=== PATIENT | male | born 1935 | race Caucasian/White ===

== ENCOUNTER 2019-10-15 12:48 | Emergency (ER) | payer OTHER ==
[~2019-10-15] VITALS: Ht 177.8 cm; Wt 90.7 kg
--- OUTSIDE RECORDS SUMMARY | 2019-10-15 12:51 | XMS REPORT | Summary of Care ---
Author Author [facility] Address Unknown Phone Unavailable Encounter HQ Bertha_[place](ZOE) [id number] Date(s): 06/04/15 - 06/04/15 [facility] [address] [place] [address]- Discharge Disposition: Home Attending Physician: Annelise Canseco MD Vital Signs No data available for this section Problem List No data available for this section Allergies, Adverse Reactions, Alerts No data available for this section Medications No data available for this section Results No data available for this section Immunizations No data available for this section Procedures No data available for this section Social History No data available for this section Assessment and Plan No data available for this section
--- OUTSIDE RECORDS SUMMARY | 2019-10-15 12:51 | XMS REPORT ---
Author Author Mohsen Tucker Organization [employer] Address Unknown Phone Unavailable Care Team Providers Care Senior Human Resources Representative Name Role Phone Sharonda Tucker CP Unavailable Allergies No Known Allergies Problems Problem Type Condition Code Onset Dates Condition Statu s Problem Hypertensive heart disease without heart failure I11.9 Active Problem Pure hypercholesterolemia E78.0 Ac tive Problem CAD without angina I25.10 Active Problem Bruit R09.89 Active Medications No Known Medications Results No Known Results Summary Purpose [employer] Submission
--- OUTSIDE RECORDS SUMMARY | 2019-10-15 12:51 | XMS REPORT ---
Author Author Mohsen Canseco Organization [employer] Address Unknown Phone Unavailable Care Team Providers Care [employer] Name Role Phone Annelise Canseco CP Unavailable Allergies, Adverse Reactions, Alerts Substance Reaction Event Type N.K.D.A. 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 Problem Mixed hyperlipidemia E78.2 Active Problem Skin lesion L98.9 Active Problem Osteopenia M85.80 Active Assessment Essential hypertension I10 Activ e Assessment 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 Active Problem Onychomycosis B35.1 Active Assessment Chronic kidney disease, stage III (moderate) N18.3 Active Problem Coronary artery disease invo lving [place] coronary artery of [place] heart without angina pectoris I25.10 Active Problem Other specified nutritional anemias D53.8 Active Problem Chronic kidney disease, stage III (moderate) N18.3 Active Problem 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 Act alejandra Problem Low vitamin D level E55.9 Active Problem Anemia D64.9 Active Problem Chronic kidney disease, stage 3 N18.3 Active Problem Dry skin L85.3 Active Problem Shortness of breath R06.02 Active Problem Fatigue R53.83 Active Problem Hyperlipidemia E78.5 Active Problem Hypertension I10 Active Medications Medication Code System Code Instructions Start Date End Date Status Dosage Humalog [facility] 53850145503 100 UNIT/ML Subcutaneous daily Active inject 95-100 units Simvastatin [facility] 23526824791 20 mg Orally Once a day Active 1 tablet in the evening Iron Formula [facility] 18665-73116 Active not def ined Vitamin D3 [facility] 80847175327 2000 UNIT Orally Once a day Active 1 capsule Losartan Potassium [facility] 76368774849 100 mg Orally Once a day Active 1 tablet Amlodipine Besylate [facility] 51486381175 10 mg Orally Once a day Active 1 tablet Alendronate Sodium [facility] 39338282901 35MG Orally once a week Active 1 tablet Alendronate Sodium [facility] 17358864299 35 MG Orally once a week Active 1 tablet ASA NDC 0 Oral Active 1 tab Alendronate Sodium [facility] 65876155209 35 MG Orally once a week Active 1 tablet Vital Signs Date/Time: August 25, 2017 BMI 26.09 Index Weight 192.4 lbs Height 72 in Temperature 98.1 F Cardiac Monitoring Heart Rate 70 /min Blood Pressure Diastolic 67 mm Hg Blood Pressure Systolic 151 mm Hg Results No Known Results Summary Purpose [employer] Submission
--- OUTSIDE RECORDS SUMMARY | 2019-10-15 12:51 | XMS REPORT ---
Author Author Mohsen Tucker Organization [employer] Address Unknown Phone Unavailable Care Team Providers Care Pottery Decorator Name Role Phone Sharonda Tucker CP Unavailable Allergies, Adverse Reactions, Alerts Substance Reaction Event Type N.K.D.A. 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.10 Active Assessment CAD without angina I25.10 Active Assessment Hypertensive heart disease without heart failure I11.9 Active Problem Bruit R09.89 Active Medications Medication Code System Code Instructions Start Date End Date Status Dosage Triamterene-HCTZ [facility] 75039535058 37.5-25 MG Orally Once a day Active 1 tablet in the morning Ammonium Lactate ND 30209005988 12 % Externally Twice a day Active 1 application to affected area Humalog ND 65273499812 100 UNIT/ML Subcutaneous Ac tive not defined Losartan Potassium ND 07482305474 100 MG Orally Once a day Active 1 tablet ProAir HFA [facility] 80881871774 108 (90 Base) MCG/ACT Inhalation ever y 4 hrs Active 2 puffs as needed Amlodipine Besylate ND 22645286684 10 MG Orally Once a day Active 1 tablet Simvastatin ND 45413205256 20 MG Orally Once a day Active 1 tablet in the evening Aspirin [facility] 84984971998 81 MG Orally Once a day Acti ve 1 tablet Vital Signs Date/Time: May 03, 2018 BMI 27.98 Index Weight 195 lbs Height 5ft 10 in in Cardiac Monitoring Heart Rate 70 /min Blood Pressure Diastolic 72 mm Hg Blood Pressure Systolic 119 mm Hg Results No Known Results Summary Purpose [employer] Submission
--- OUTSIDE RECORDS SUMMARY | 2019-10-15 12:51 | XMS REPORT ---
Author Author Mohsen Canseco Organization [employer] Address Unknown Phone Unavailable Care Team Providers Care Rn Gyn Name Role Phone Annelise Canseco Unavailable Allergies, Adverse Reactions, Alerts Substance Reaction Event Type N.K.D.A. Info Not Available Non Drug Allergy Problems Problem Type Condition Code Onset Dates Condition Statu s Assessment Onychomycosis B35.1 Active Assessment Osteopenia M85.80 Active Assessment Low vitamin D level E55.9 Active Assessment Other specified nutritional anemias D53.8 Active Problem Dyspnea on exertion R06.09 Active Assessment Coronary artery disease invo lving [place] coronary artery of [place] heart without angina pectoris I25.10 Active Problem CAD (coronary artery disease) I25.10 Active Assessment Mixed hyperlipidemia E78.2 Active Problem Essential hypertension I10 Activ e Problem 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 Problem Mixed hyperlipidemia E78.2 Active Problem Skin lesion L98.9 Active Problem Osteopenia M85.80 Active Assessment 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 Active Assessment Essential hypertension I10 Activ e Problem Onychomycosis B35.1 Active Assessment Chronic kidney disease, stage III (moderate) N18.3 Active Problem Coronary artery disease invo lving [place] coronary artery of [place] heart without angina pectoris I25.10 Active Problem [...] Instructions Start Date End Date Status Dosage Alendronate Sodium [facility] 42070804509 35MG Orally once a week Active 1 tablet Alendronate Sodium ND 05769245099 35 MG Orally once a week Active 1 tablet Vitamin D3 [facility] 96681693164 2000 UNIT Orally Once a day Active 1 capsule Simvastatin [facility] 23787246158 20 mg Orally Once a day Active 1 tablet in the evening Humalog [facility] 43605927304 100 UNIT/ML Subcutaneous daily Inactive inject 95- 100 units NovoLog ND 38564827246 100 UNIT/ML Subcutaneous daily November 23, 2017 Active inject 90-100 units ASA NDC 0 Oral Active 1 tab Iron Formula [facility] 80535-34734 Active not def ined Losartan Potassium [facility] 46011923683 100 mg Orally Once a day Active 1 tablet Amlodipine Besylate [facility] 67205772159 10 mg Orally Once a day Active 1 tablet Vital Signs Date/Time: November 23, 2017 BMI 26.05 Index Weight 192.1 lbs Height 72 in Temperature 98.3 F Cardiac Monitoring Heart Rate 84 /min Blood Pressure Diastolic 66 mm Hg Blood Pressure Systolic 180 mm Hg Results No Known Results Summary Purpose [employer] Submission
--- OUTSIDE RECORDS SUMMARY | 2019-10-15 12:51 | XMS REPORT | Continuity of Care Document ---
Author Author [employer]os [employer] LEE Guerra Organization [employer] Address Unknown Phone Unavailable Care Team Providers Care Credit And Collections Analyst Name Role Phone [employer] Unavailable Un available Problems Problem Status Onset Date Classification Date Reported Comments Source M81.0 Active 06/02/2016 [facility] UNK Active 0 06/11/2015 [facility] R06.02 Active 06/04/2015 [facility] Coronary arteriosclerosis (disorder) Resolved Problem [facility] Cataract (disorder) Resolved Problem 06/07/2016 [facility] Diabetes mellitus (disorder) R esolved Problem [facility] Hypercholesterolemia (disorder) Resolved Problem [facility] Hypertensive disorder, systemic arterial (disorder) Resolved Problem 06/07/2016 [facility] Hypertensive heart disease without heart failure Active Problem 05/31/2019 Jairo Lyon MD, P A Pure hypercholesterolemia Acti ve Problem Jairo Lyon MD, PA CAD without angina Active Problem 05/31/2019 Jairo Lyon MD, PA Bruit Active Problem 05/31/2019 Jairo Lyon MD, PA Osteopenia Active Problem 02/28/2018 [facility] Low vitamin D level Active Problem 02/28/2018 [facility] Shortness of breath Active Problem 02/28/2018 [facility] Other specified nutritional anemias Active Problem [facility] Dyspnea on exertion Active Problem 02/28/2018 [facility] Coronary artery disease involving ramona coronary artery of ramona heart without angina pectoris Active Problem 02/28/2018 [facility] CAD (coronary artery disease) Active Problem [facility] Age related osteoporosis Active Problem 02/28/2018 [facility] Type 1 diabetes mellitus with diabetic c hronic kidney disease Active Prob miya 02/28/2018 [facility] Chronic kidney disease, stage III (moderate) Active Problem 02/28/2018 [facility] Skin lesion Active Problem 02/28/2018 [facility] Mixed hyperlipidemia Active Problem 02/28/2018 [facility] Essential hypertension Active Problem 02/28/2018 [facility] Anemia Active Problem 02/28/2018 [facility] Dry skin Active Problem 02/28/2018 [facility] Hypertension Active Problem 02/28/2018 [facility] Fatigue Active Problem 02/28/2018 [facility] Chronic kidney disease, stage 3 Active Problem [facility] Hyperlipidemia Active Problem 02/28/2018 [facility] Upper respiratory tract infection, unspecified type Active Diagnosis 04/14/2017 [facility] Onychomycosis Active Problem 02/28/2018 [facility] Gastroesophageal reflux disease without esophagitis Active Problem 02/28/2018 [facility] Type 2 diabetes mellitus with hyperglycemia Active Problem 04/30/2016 [facility] Type 2 diabetes mellitus with other diab etic kidney complication Active Prob miya 04/30/2016 [facility] Concern about STD in male without diagnosis Active Diagnosis 06/03/2016 [facility] Other and unspecified hyperlipidemia Active Problem [id number] 2568 Essential (primary) hypertension Active Problem [id number] 2568 Obesity (BMI 30-39.9) Active Problem 07/29/2018 [id number] 2568 Type 1 diabetes mellitus with diabetic neuropathy Active Problem 07/29/2018 [id number] Encounter for general adult medical exam ination with abnormal findings Active Diag nosis 07/18/2018 [id number] Bilateral impacted cerumen Act alejandra Diagnosis 0 06/01/2018 [id number] 2568 Cough Active Diagnosis 06/01/2018 [id number] SHORTNESS OF BREATH Active [facility] AGE-RELATED OSTEOPOROSIS W/O CURRENT PAT Active [facility] Medications Medication Details Route Status Patient Instructions Ordering Provider Order Date Source alendronate 35 mg Tab 1 tablet orally Active orally ONCE A WEEK Eren 12/19/2018 [id number] Humalog inject 140 units Subcutaneous Active 100 UNIT/ML Subcutaneous refill for pump Eren 06/21/2018 [id number] .[id number] Contour Next Test as directed In Vitro Active - In Vitro ten times a day Eren 05/26/2018 [id number] Amlodipine Besylate 1 tablet Orally Active 10 mg Orally Once a day Eren 05/24/2018 [id number] Valsartan-Hydrochlorothiazide 1 tablet Orally Active 320-25 MG Orally Once a day Eren 05/24/2018 [id number] Omeprazole 1 capsule Orally Active 40 mg Orally Once a day Ajith 02/22/2018 [facility] NovoLog inject 90-100 units Subcutaneous Active 100 UNIT/ML Subcutaneous daily Ajith 11/23/2017 [facility] Alendronate Sodium 1 tablet Orally Active 35 MG Orally once a week Ajith 08/16/2017 [facility] Azithromycin 2 tablets on the first day, then 1 tablet daily for 4 days Orally Active 250 MG Orally Once a day Ajith 04/13/2017 [facility] PredniSONE 1 tablet Orally Active 10 mg Orally Once a day Ajith 04/13/2017 [facility] Levocetirizine Dihydrochloride 1 tablet in the evening Orally Active 5 MG Orally Once a day Ajith 04/13/2017 [facility] Benzonatate 1 capsule Orally Active 200 MG Orally Three dona es a day as needed Ajith 04/13/2017 [facility] Alendronate Sodium 1 tablet Orally Active 35 MG Orally once a week Ajith 03/14/2017 [facility] Alendronate Sodium 1 tablet Orally Active 35 MG Orally once a week Ajith 06/17/2016 [facility] Sodium Chloride 0.154 MEQ/ML Injectable Solution 300 mL, Rate: 100 ml/hr, Infuse over: 3 hr, Route: IV, Dosing Weight 86.364 kg, Total Volume: 300, Start date: 06/17/15 13:12:00, Duration: 24 hr, Stop date: 06/18/15 13:11:00 Inactive 06/17/2015 [facility] Notes: (Same as:MORPh ine Sulfate) Inactive 06/17/2015 [facility] Ondansetron Notes: (Same as: Sharla hathaway) MEDICATION WASTE Product Size: 4 mg Product Wasted: ___ mg Inactive 06/17/2015 [facility] Acetaminophen Notes: Do not ex ceed 4 gm/day. (Same as: Tylenol) Inactive 06/17/2015 [facility] normal saline 0.9% IV 1,000 mL 1,000 mL, Rate: 100 ml/hr, Infuse over: 10 hr, Route: IV, Dosing Weight 86.364 kg, Total Volume: 1,000, Start date: 06/17/15 9:41:00, Duration: 30 day, Stop date: 07/17/15 9:40:00 Inactive 06/17/2015 [facility] Iron 100 Plus 1 tab, PO, Daily , 0 Refill(s) Active 06/16/2015 [facility] Vitamin D3 5000 intl units oral tablet 5,000 IntlUnit = 1 tab, PO, Daily, 0 Refill(s) Active 06/16/2015 [facility] Aspirin 81 MG Enteric Coated Tablet 81 mg = 1 tab, PO, Daily, # 90 tab, 3 Refill(s) Active 06/16/2015 [facility] Hydrochlorothiazide 25 MG / Triamterene 37.5 MG Oral Capsule 1 cap, PO, Daily, 0 Refill(s) No Longer Active 06/16/2015 [facility] simvastatin 20 mg oral tablet 20 mg = 1 tab, PO, Bedtime, 0 Refill(s) Active 06/16/2015 [facility] losartan 100 mg oral tablet 10 0 mg = 1 tab, PO, Daily, 0 Refill(s) Active 06/16/2015 [facility] Amlodipine 10 mg, PO, Daily, 0 Refill(s) Active 06/16/2015 [facility] Humalog SUB-Q, pump, 0 Refill( s) Active 06/16/2015 [facility] ProAir HFA 2 puffs as needed Inhalation No Longer Active 108 (90 Base) MCG/ACT Inhalation every 4-6 hrs as needed Ajith06/04/2015 [facility] Ammonium Lactate 1 application to affected area Externally Active 12 % Externally Twice a day Qa 05/21/2015 [facility] Simvastatin 1 tablet in the ev ening Orally Active 20 mg Orally Once a day [facility]Jairo Lyon [facility], [facility] Triamterene-HCTZ 1 tablet in t he morning Orally Active 37.5-25 MG Orally Once a day Garrett Lyon MD, PA Losartan Potassium 1 tablet Orally Active 100 MG Orally Once a day [facility] Aspirin 1 tablet Orally Active 81 MG Orally Once a day Garrett Lyon MD, PA ProAir HFA 2 puffs as needed Inhalation Active 108 (90 Base) MCG/ACT Inhalation every 4 hrs Garrett Lyon MD, PA Amlodipine Besylate 1 tablet Orally Active 10 mg Orally Once a day [facility] Ammonium Lactate 1 application to affected area Externally Active 12 % Externally Twice a day Ben Lyon MD, PA Humalog not defined Subcutaneous Active 100 UNIT/ML Subcutaneou s [facility], PAULETTE Vitamin D3 1 capsule Orally Active 2000 UNIT Orally Once a day [facility] Losartan Potassium 1 tablet Orally Active 100 mg Orally Once a day [facility] Amlodipine Besylate 1 tablet Orally Active 10 mg Orally Once a day [facility] ASA 1 tab Or al Active Oral [facility] Alendronate Sodium 1 tablet Orally Active 35MG Orally once a week [facility] Iron Formula not defined NA Active [facility] Simvastatin 1 tablet in the ev ening Orally Active 20 mg Orally Once a day [facility] Alendronate Sodium 1 tablet Orally Active 35 MG Orally once a week [facility] Humalog inject 80 to 85 units Subcutaneous Active 100 Subcutaneous daily [facility] Vitamin D3 1 capsule Orally Active 2000 UNIT Orally Once a day [facility] Alendronate Sodium 1 tablet Orally Active 35 MG Orally once a week [facility] Iron Formula not defined NA Active [facility] Ammonium Lactate 1 application to affected area Externally Active 12 % Externally Twice a day Ben Lyon MD, PA Triamterene-HCTZ 1 tablet in t he morning Orally Active 37.5-25 MG Orally Once a day Garrett [facility] Humalog Unknown Subcutaneous Active 100 UNIT/ML Subcutaneou s [facility] [place] Aspirin 1 tablet Orally Active 81 MG Orally Once a day Garrett Lyon MD, PAULETTE ProAir HFA 2 puffs as needed Inhalation Active 108 (90 Base) MCG/ACT Inhalation every 4 hrs Garrett Lyon MD, PAULETTE Vitamin D3 Unknown NA Active [facility] ASA 1 tab Or al Active Oral [facility] Valsartan-Hydrochlorothiazide 1 tablet Orally Active 320-12.5 MG Orally Once a day Garrett Lyon MD, PAULETTE Alendronate Sodium 1 tablet Orally Active 35 MG Orally Garrett Lyon MD, PAULETTE Humalog KwikPen 100-110 units Subcutaneous Active 100 UNIT/ML Subcutaneous once a day Eren .727934.4 Simvastatin 20 mg Tab 1 tablet orally Active 20 mg orally once a day Eren .1.342561.4 Amlodipine 10 mg Tab BENZAPRILE by mouth Active by mouth once a day Eren .1.895806.4391 iron 65 MG O ral Active Oral once a day Eren .1.789153.4.391 Aspir-81 1 tablet Orally Active 81 MG Orally Once a day Eren .1.414757.4 Amlodipine Besy-Benazepril HCl as directed Orally Active 10-20 MG Orally Eren .1.270215.4.391 alendronate 35 mg Tab not defi anila NA Active on ce a day Eren 07.01.830.1.559161.4.391 Simvastatin 20 mg Tab not defi anila NA Active on ce a day Eern .1.491087.4 Omeprazole 1 capsule Orally Active 40 mg Orally twice a da y (bid) Eren 2..840.1.920848.4. losartan 100 mg tablet not def ined NA Active on ce a day Eren [id number] Allergies, Adverse Reactions, Alerts Substance Category Reaction Severity Reaction type Status Date Reported Comments Source N.K.D.A. Adverse Reaction Info Not Available Adverse Reaction 05/30/2019 Jairo Lyon MD, PA Immunizations Immunization Date Given Site Status Last Updated Comments Source FLU SHOT 3 & UP 02/27/2018 completed [facility] FLU SHOT 3 & UP 02/13/2016 [facility] Results Order Name Results Value Reference Range Date Interpretation Comments Source ELECTROLYTES AGAP 11.4 10.0 - 20.0 06/16/2015 [facility] ELECTROLYTES Glucose Lvl 175 70 - 99 06/16/2015 [facility] ELECTROLYTES BUN 31 7 - 22 06/16/2015 [facility] ELECTROLYTES Sodium Lvl 135 135 - 145 06/16/2015 [facility] ELECTROLYTES CO2 28 24 - 32 06/16/2015 [facility] ELECTROLYTES Chloride Lvl 100 95 - 109 06/16/2015 [facility] ELECTROLYTES Potassium Lvl 4.4 3.5 - 5.1 06/16/2015 [facility] ELECTROLYTES Calcium Lvl 8.9 8.5 - 10.5 06/16/2015 [facility] ELECTROLYTES eGFR 44 06/16/2015 Result Comment: The eGFR is calculated using the CKD-EPI formula. In most young, healthy individuals the eGFR will be >90 mL/min/1.73m2. The eGFR declines with age. An eGFR of 60-89 may be normal in some populations, particularly the elderly, for whom the CKD-EPI formula has not been extensively validated. Use of the eGFR is not recommended in the following populations:

Individuals with unstable creatinine concentrations, including patients and those with serious co-morbid conditions.

Patients with extremes in muscle mass or diet.

The data above are obtained from the National Kidney Disease Education Program (NKDEP) which additionally recommends that when the eGFR is used in patients with extremes of body mass index for purposes of drug dosing, the eGFR should be multiplied by the estimated BMI. [facility] ELECTROLYTES Creatinine Lvl 1.5 1 0.50 - 1.40 06/16/2015 [facility] HEMATOLOGY PTT 28.4 22.9 - 35.8 06/16/2015 [facility] HEMATOLOGY PT 14.4 12.0 - 14.7 06/16/2015 [facility] HEMATOLOGY INR 1.09 0.85 - 1.17 06/16/2015 [facility] HEMATOLOGY Hct 39.8 42.0 - 54.0 06/16/2015 [facility] HEMATOLOGY Hgb 13.4 14.0 - 18.0 06/16/2015 [facility] HEMATOLOGY Platelet 201 133 - 450 06/16/2015 [facility] Pathology Reports No Data Provided for This Section Diagnostic Reports Report Value Date Source Bone Density Scan BONE DENSITY : HISTORY: Osteoporosis. TECHNIQUE: Dual energy x-ray absorptiometry (DEXA) was done over the lumbar spine and left hip on a [employer] Discovery SL scanner. FINDINGS: The total T-score over the lumbar spine is -0.4, consistent with normal bone density. The global T-score over the left hip is -0.3, consistent with normal bone density. The focal T-score over the left femoral neck is -1.6, consistent with osteopenia. The BMD is 0.713 g/sq cm. IMPRESSION: 1. Normal bone density of the lumbar spi ne. 2. Normal global bone density of the lef t hip. 3. Osteopenia of the left femoral neck. FOR YOUR INFORMATION: The World Health Organization has established that OSTEOPOROSIS occurs at -2.5 or more standard deviations below peak bone mass (T-score). OSTEOPENIA occurs at -1.0 to -2.5 standard deviations (T-score) below peak bone mass. SL [id number] 06/04/2016 [facility] Chest 2 views DX PA and latera l chest: The cardiomediastinal silhouette, pulmonary vasculature and joanie are within normal limits. The lungs and pleural spaces are clear. There are no significant osseous abnormalities. There is no significant change compared to 09/26/2013. IMPRESSION: No acute radiographic abnormality in the chest. SL:13 06/04/2015 [facility] Consultation Notes No Data Provided for This Section Discharge Summaries No Data Provided for This Section History and Physicals No Data Provided for This Section Vital Signs Vital Sign Value Date Comments Source Weight 198 05/30/2019 Jairo Lyon MD, PA Heart Rate 64 05/30/2019 Jairo Lyon MD, PA Diastolic (mm Hg) 69 05/30/2019 Jairo Lyon MD, PA Systolic (mm Hg) 143 05/30/2019 Jairo Lyon MD, PA Weight 198 03/05/2019 Jairo Lyon MD, PA Heart Rate 83 03/05/2019 Jairo Lyon MD, PA Diastolic (mm Hg) 71 03/05/2019 Jairo Lyon MD, PA Systolic (mm Hg) 143 03/05/2019 Jairo Lyon MD, PA Weight 202.5 05/24/2018 [id number] 2568 Height 66.6 05/24/2018 [id number] 2568 Temperature Oral (F) 96.5 F 05/24/2018 [id number] Heart Rate 66 05/24/2018 2.16.840.1.576285.4.391.11.2 2568 Diastolic (mm Hg) 67 05/24/2018 [id number] Systolic (mm Hg) 151 05/24/2018 [id number] Weight 195 05/03/2018 Jairo Lyon MD, PA Heart Rate 70 05/03/2018 Jairo Lyon MD, PA Diastolic (mm Hg) 72 05/03/2018 Jairo Lyon MD, PA Systolic (mm Hg) 119 05/03/2018 Jairo Lyon MD, PA Weight 190.0 02/27/2018 [facility] Height 72 1 [facility] Temperature Oral (F) 97.7 F 02/27/2018 [facility] Heart Rate 88 02/27/2018 [facility] Diastolic (mm Hg) 77 02/27/2018 [facility] Systolic (mm Hg) 127 02/27/2018 [facility] Weight 189.1 02/22/2018 [facility] Height 72 1 [facility] Temperature Oral (F) 98.0 F 02/22/2018 [facility] Heart Rate 80 02/22/2018 [facility] Diastolic (mm Hg) 60 02/22/2018 [facility] Systolic (mm Hg) 143 02/22/2018 [facility] Weight 192.1 11/23/2017 [facility] Height 72 0 11/23/2017 [facility] Temperature Oral (F) 98.3 F 11/23/2017 [facility] Heart Rate 84 11/23/2017 [facility] Diastolic (mm Hg) 66 11/23/2017 [facility] Systolic (mm Hg) 180 11/23/2017 [facility] Weight 192.4 08/25/2017 [facility] Height 72 0 08/25/2017 [facility] Temperature Oral (F) 98.1 F 08/25/2017 [facility] Heart Rate 70 08/25/2017 [facility] Diastolic (mm Hg) 67 08/25/2017 [facility] Systolic (mm Hg) 151 08/25/2017 [facility] Weight 196.1 05/26/2017 [facility] Height 72 0 05/26/2017 [facility] Temperature Oral (F) 98.5 F 05/26/2017 [facility] Heart Rate 77 05/26/2017 [facility] Diastolic (mm Hg) 79 05/26/2017 [facility] Systolic (mm Hg) 121 05/26/2017 [facility] Weight 195 05/02/2017 Jairo Lyon MD, PA Heart Rate 79 05/02/2017 Jairo Lyon MD, PA Diastolic (mm Hg) 62 05/02/2017 Jairo Lyon MD, PA Systolic (mm Hg) 140 05/02/2017 Jairo Lyon MD, PA Weight 195.5 04/13/2017 [facility] Height 72 1 06/13/2016 [facility] Temperature Oral (F) 97.9 F 04/13/2017 [facility] Heart Rate 88 04/13/2017 [facility] Diastolic (mm Hg) 74 04/13/2017 [facility] Systolic (mm Hg) 124 04/13/2017 [facility] Weight 197.7 02/17/2017 [facility] Height 72 1 [facility] Temperature Oral (F) 97.0 F 02/17/2017 [facility] Heart Rate 64 02/17/2017 [facility] Diastolic (mm Hg) 67 02/17/2017 [facility] Systolic (mm Hg) 132 02/17/2017 [facility] Weight 193.6 12/16/2016 [facility] Height 72 0 12/16/2016 [facility] Temperature Oral (F) 98.1 F 12/16/2016 [facility] Heart Rate 55 12/16/2016 [facility] Diastolic (mm Hg) 78 12/16/2016 [facility] Systolic (mm Hg) 147 12/16/2016 [facility] Weight 195.2 09/15/2016 [facility] Height 72 0 09/15/2016 [facility] Temperature Oral (F) 97.2 F 09/15/2016 [facility] Heart Rate 64 09/15/2016 [facility] Diastolic (mm Hg) 61 09/15/2016 [facility] Systolic (mm Hg) 117 09/15/2016 [facility] Weight 193.1 06/17/2016 [facility] Height 72 0 06/17/2016 [facility] Temperature Oral (F) 98.3 F 06/17/2016 [facility] Heart Rate 64 06/17/2016 [facility] Diastolic (mm Hg) 66 06/17/2016 [facility] Systolic (mm Hg) 111 06/17/2016 [facility] Weight 194.7 06/02/2016 [facility] Height 72 0 06/02/2016 [facility] Temperature Oral (F) 97.9 F 06/02/2016 [facility] Heart Rate 64 06/02/2016 [facility] Diastolic (mm Hg) 67 06/02/2016 [facility] Systolic (mm Hg) 105 06/02/2016 [facility] Weight 194 05/06/2016 Jairo Lyon MD, PA Heart Rate 72 05/06/2016 Jairo Lyon MD, PA Diastolic (mm Hg) 60 05/06/2016 Jairo Lyon MD, PA Systolic (mm Hg) 145 05/06/2016 Jairo Lyon MD, PA Weight 191.4 04/29/2016 [facility] Height 72 1 06/30/2015 [facility] Temperature Oral (F) 98.1 F 04/29/2016 [facility] Heart Rate 63 04/29/2016 [facility] Diastolic (mm Hg) 63 04/29/2016 [facility] Systolic (mm Hg) 146 04/29/2016 [facility] Weight 192.7 02/13/2016 [facility] Height 72 0 02/13/2016 [facility] Temperature Oral (F) 97.9 F 02/13/2016 [facility] Heart Rate 61 02/13/2016 [facility] Diastolic (mm Hg) 66 02/13/2016 [facility] Systolic (mm Hg) 133 02/13/2016 [facility] Weight 192.6 02/11/2016 [facility] Height 72 0 02/11/2016 [facility] Temperature Oral (F) 98.1 F 02/11/2016 [facility] Heart Rate 61 02/11/2016 [facility] Diastolic (mm Hg) 68 02/11/2016 [facility] Systolic (mm Hg) 152 02/11/2016 [facility] Weight 191.8 11/19/2015 [facility] Height 72 0 11/19/2015 [facility] Temperature Oral (F) 97.9 F 11/19/2015 [facility] Heart Rate 65 11/19/2015 [facility] Diastolic (mm Hg) 56 11/19/2015 [facility] Systolic (mm Hg) 130 11/19/2015 [facility] Weight 195 11/05/2015 Jairo Lyon MD, PA Heart Rate 79 11/05/2015 Jairo Lyon MD, PA Diastolic (mm Hg) 79 11/05/2015 Jairo Lyon MD, PA Systolic (mm Hg) 125 11/05/2015 Jairo Lyon MD, PA Weight 191.6 08/25/2015 [facility] Height 72 0 08/25/2015 [facility] Temperature Oral (F) 98.6 F 08/25/2015 [facility] Heart Rate 69 08/25/2015 [facility] Diastolic (mm Hg) 67 08/25/2015 [facility] Systolic (mm Hg) 126 08/25/2015 [facility] Weight 190.8 07/18/2015 [facility] Height 72 0 07/18/2015 [facility] Temperature Oral (F) 98.6 F 07/18/2015 [facility] Heart Rate 79 07/18/2015 [facility] Diastolic (mm Hg) 66 07/18/2015 [facility] Systolic (mm Hg) 142 07/18/2015 [facility] Weight 189.5 07/04/2015 [facility] Height 72 0 07/04/2015 [facility] Temperature Oral (F) 98.6 F 07/04/2015 [facility] Heart Rate 77 07/04/2015 [facility] Diastolic (mm Hg) 71 07/04/2015 [facility] Systolic (mm Hg) 132 07/04/2015 [facility] Weight 190 06/30/2015 Jairo Lyon MD, PA Heart Rate 65 06/30/2015 Jairo Lyon MD, PA Diastolic (mm Hg) 60 06/30/2015 Jairo Lyon MD, PA Systolic (mm Hg) 125 06/30/2015 Jairo Lyon MD, PA Heart Rate 72 06/17/2015 [facility] Systolic (mm Hg) 126 06/17/2015 [facility] Diastolic (mm Hg) 60 06/17/2015 [facility] Respitory Rate 18 06/17/2015 [facility] Temperature Oral (F) 97.4 F 06/16/2015 [facility] Systolic (mm Hg) 115 06/16/2015 [facility] Diastolic (mm Hg) 61 06/16/2015 [facility] Heart Rate 64 06/16/2015 [facility] Weight 86.364 06/16/2015 [facility] BMI Calculated 27.32 06/16/2015 [facility] Height 177.8 cm 06/16/2015 [facility] Weight 189.6 06/04/2015 [facility] Height 72 0 06/04/2015 [facility] Temperature Oral (F) 98.6 F 06/04/2015 [facility] Heart Rate 74 06/04/2015 [facility] Diastolic (mm Hg) 66 06/04/2015 [facility] Systolic (mm Hg) 114 06/04/2015 [facility] Weight 190.8 05/21/2015 [facility] Height 72 0 05/21/2015 [facility] Temperature Oral (F) 98.5 F 05/21/2015 [facility] Heart Rate 66 05/21/2015 [facility] Diastolic (mm Hg) 64 05/21/2015 [facility] Systolic (mm Hg) 124 05/21/2015 [facility] Encounters Location Location Details Encounter Type Encounter Number Reason For Visit Attending Provider ADM Date DC Date Status Source [facility] New patient here to [facility] [id number] 05/21/2015 05/21/2015 Jairo Lyon MD, PA [email or web address] care [id number] 05/21/2015 05/21/2015 [facility] New patient here to [facility] [id number] 05/21/2015 05/21/2015 [facility] Primary Care New patient here to est care [id number] 05/21/2015 05/21/2015 [facility] Primary Care New patient here to est care [id number] 05/21/2015 05/21/2015 [facility] Primary Care New patient here to est care [id number] 05/21/2015 05/21/2015 Jairo Lyon MD, [facility] Primary Care New patient here to est care [id number] 05/21/2015 05/21/2015 [facility] Care New patient here to est care [id number] 05/21/2015 05/21/2015 [facility] Care New patient here to est care [id number] 05/21/2015 05/21/2015 Jairo Lyon MD, [facility] Primary Care New patient here to est care [id number] 05/21/2015 05/21/2015 [facility] Care New patient here to est care [id number] 05/21/2015 05/21/2015 [facility] Care New patient here to est care [id number] 05/21/2015 05/21/2015 [facility] Care New patient here to est care [id number] 05/21/2015 05/21/2015 [facility] Care New patient here to est care [id number] 05/21/2015 05/21/2015 [facility] Care New patient here to est care [id number] 05/21/2015 05/21/2015 [facility] Care New patient here to est care [id number] 05/21/2015 05/21/2015 [facility] Care New patient here to est care [id number] 05/21/2015 05/21/2015 Jairo Lyon MD, PA [facility] Care patient here to follow up on medication [id number] 06/04/2015 06/04/2015 Jairo Lyon MD, PA [facility] Care patient here to follow up on medication [id number] 06/04/2015 06/04/2015 [facility] Primary Care patient here to follow up on medication [id number] 06/04/2015 06/04/2015 [facility] Primary Care patient here to follow up on medication [id number] 06/04/2015 06/04/2015 [facility] Primary Care patient here to follow up on medication [id number] 06/04/2015 06/04/2015 [facility] Primary Care patient here to follow up on medication [id number] 06/04/2015 06/04/2015 Jairo Lyon MD, PA [facility] Primary Care patient here to follow up on medication [id number] 06/04/2015 06/04/2015 [facility] Primary Care patient here to follow up on medication [id number] 06/04/2015 06/04/2015 [facility] Primary Care patient here to follow up on medication [id number] 06/04/2015 06/04/2015 Jairo Lyon MD, PA [facility] Primary Care patient here to follow up on medication [id number] 06/04/2015 06/04/2015 [facility] Primary Care patient here to follow up on medication [id number] 06/04/2015 06/04/2015 [facility] Primary Care patient here to follow up on medication [id number] 06/04/2015 06/04/2015 [facility] Primary Care patient here to follow up on medication [id number] 06/04/2015 06/04/2015 [facility] Primary Care patient here to follow up on medication [id number] 06/04/2015 06/04/2015 [facility] Care patient here to follow up on medication [id number] 06/04/2015 06/04/2015 [facility] Care patient here to follow up on medication [id number] 06/04/2015 06/04/2015 Jairo Lyon MD, PA [facility] [id number] Annelise Schumachermar 06/04/2015 06/05/2015 [facility] Outpatient [id number] Sharonda Tucker 06/17/2015 06/17/2015 [facility] Jairo Lyon MD, PA echocardiogram [id number] 06/26/2015 06/26/2015 Jairo Lyon MD, PA Jairo Lyon MD, PA echocardiogram [id number] 06/26/2015 06/26/2015 [facility] Jairo Lyon MD, PA echocardiogram [id number] 06/26/2015 06/26/2015 [facility] Jairo Lyon MD, PA echocardiogram [id number] 06/26/2015 06/26/2015 [facility] Jairo Lyon MD, PA echocardiogram [id number] 06/26/2015 06/26/2015 [facility] Jairo Lyon MD, PA echocardiogram [id number] 06/26/2015 06/26/2015 Jairo Lyon MD, PA Jairo Lyon MD, PA echocardiogram [id number] 06/26/2015 06/26/2015 [facility] Jairo Lyon MD, PA echocardiogram [id number] 06/26/2015 06/26/2015 [facility] Jairo Lyon MD, PA echocardiogram [id number] 06/26/2015 06/26/2015 [facility] Jairo Lyon MD, PA echocardiogram [id number] 06/26/2015 06/26/2015 [facility] Jairo Lyon MD, PA echocardiogram [id number] 06/26/2015 06/26/2015 [facility] Jairo Lyon MD, PA echocardiogram [id number] 06/26/2015 06/26/2015 Jairo Lyon MD, PA Jairo Lyon MD, PA Follow-Up [id number] 06/30/19 16 06/30/2015 Jairo Lyon MD, PA Jairo Lyon MD, PA Follow-Up [id number] 06/30/19 16 06/30/2015 [facility] Jairo Lyon MD, PA Follow-Up [id number] 06/30/19 16 06/30/2015 [facility] Jairo Lyon MD, PA Follow-Up [id number] 06/30/19 16 06/30/2015 [facility] Jairo Lyon MD, PA Follow-Up [id number] 06/30/19 16 06/30/2015 [facility] Jairo Lyon MD, PA Follow-Up [id number] 06/30/19 16 06/30/2015 Jairo Lyon MD, PA Jairo Lyon MD, PA Follow-Up [id number] 06/30/19 16 06/30/2015 [facility] Jairo Lyon MD, PA Follow-Up [id number] 06/30/19 16 06/30/2015 [facility] Jairo Lyon MD, PA Follow-Up [id number] 06/30/19 16 06/30/2015 Jairo Lyon MD, PA Jairo Lyon MD, PA Follow-Up [id number] 06/30/19 16 06/30/2015 [facility] Jairo Lyon MD, PA Follow-Up [id number] 06/30/19 16 06/30/2015 [facility] Jairo Lyon MD, PA Follow-Up [id number] 06/30/19 16 06/30/2015 [facility] Jairo Lyon MD, PA Follow-Up [id number] 06/30/19 16 06/30/2015 [facility] Jairo Lyon MD, PA Follow-Up [id number] 06/30/19 16 06/30/2015 Jairo Lyon MD, PA [facility] Patient here for a follow up [id number] 07/04/2015 07/04/2015 Jairo Lyon MD, PA [facility] Patient here for a follow up [id number] 07/04/2015 07/04/2015 [facility] Care Patient here for a follow up [id number] 07/04/2015 07/04/2015 [facility] Care Patient here for a follow up [id number] 07/04/2015 07/04/2015 [facility] Patient here for a follow up [id number] 07/04/2015 07/04/2015 [facility] Care Patient here for a follow up [id number] 07/04/2015 07/04/2015 Jairo Lyon MD, PA [facility] Patient here for a follow up [id number] 07/04/2015 07/04/2015 [facility] Care Patient here for a follow up [id number] 07/04/2015 07/04/2015 [facility] Patient here for a follow up [id number] 07/04/2015 07/04/2015 Jairo Lyon MD, PA [facility] Patient here for a follow up [id number] 07/04/2015 07/04/2015 [facility] Care Patient here for a follow up [id number] 07/04/2015 07/04/2015 [facility] Care Patient here for a follow up [id number] 07/04/2015 07/04/2015 [facility] Care Patient here for a follow up [id number] 07/04/2015 07/04/2015 [facility] Care Patient here for a follow up [id number] 07/04/2015 07/04/2015 [facility] Care Patient here for a follow up [id number] 07/04/2015 07/04/2015 Jairo Lyon MD, PA [facility] Care patient here for his annuuel physical and labs [id number] 07/18/2015 07/18/2015 Jairo Lyon MD, PA [facility] Care patient here for his annuuel physical and labs [id number] 07/18/2015 07/18/2015 [facility] Care patient here for his annuuel physical and labs [id number] 07/18/2015 07/18/2015 [facility] Care patient here for his annuuel physical and labs [id number] 07/18/2015 07/18/2015 [facility] Care patient here for his annuuel physical and labs [id number] 07/18/2015 07/18/2015 [facility] Care patient here for his annuuel physical and labs [id number] 07/18/2015 07/18/2015 Jairo Lyon MD, PA [facility] Care patient here for his annuuel physical and labs [id number] 07/18/2015 07/18/2015 [facility] Care patient here for his annuuel physical and labs [id number] 07/18/2015 07/18/2015 [facility] Care patient here for his annuuel physical and labs [id number] 07/18/2015 07/18/2015 [facility] Care patient here for his annuuel physical and labs [id number] 07/18/2015 07/18/2015 [facility] Care patient here for his annuuel physical and labs [id number] 07/18/2015 07/18/2015 [facility] Care patient here for his annuuel physical and labs [id number] 07/18/2015 07/18/2015 [facility] Care patient here for his annuuel physical and labs [id number] 07/18/2015 07/18/2015 Jairo Lyon MD, PA [facility] Care patient here for labs work [id number] 08/25/2015 08/25/2015 [facility] Care patient here for labs work [id number] 08/25/2015 08/25/2015 [facility] Care patient here for labs work [id number] 08/25/2015 08/25/2015 [facility] Care patient here for labs work [id number] 08/25/2015 08/25/2015 [facility] Care patient here for labs work [id number] 08/25/2015 08/25/2015 Jairo Lyon MD, PA [facility] Care patient here for labs work [id number] 08/25/2015 08/25/2015 [facility] Care patient here for labs work [id number] 08/25/2015 08/25/2015 [facility] Care patient here for labs work [id number] 08/25/2015 08/25/2015 [facility] Care patient here for labs work [id number] 08/25/2015 08/25/2015 [facility] Care patient here for labs work [id number] 08/25/2015 08/25/2015 [facility] patient here for labs work [id number] 08/25/2015 08/25/2015 Jairo Lyon MD, PA [facility] test strips called in [id number] 09/15/2015 09/15/2015 [facility] test strips called in [id number] 09/15/2015 09/15/2015 [facility] test strips called in [id number] 09/15/2015 09/15/2015 [facility] test strips called in [id number] 09/15/2015 09/15/2015 Jairo Lyon MD, PA [facility] test strips called in [id number] 09/15/2015 09/15/2015 [facility] Care test strips called in [id number] 09/15/2015 09/15/2015 [facility] Care test strips called in [id number] 09/15/2015 09/15/2015 [facility] test strips called in [id number] 09/15/2015 09/15/2015 [facility] test strips called in [id number] 09/15/2015 09/15/2015 [facility] test strips called in [id number] 09/15/2015 09/15/2015 Jairo Lyon MD, PA [facility] test strips called in [id number] 09/29/2015 09/29/2015 [facility] test strips called in [id number] 09/29/2015 09/29/2015 [facility] test strips called in [id number] 09/29/2015 09/29/2015 Jairo Lyon MD, PA [facility] test strips called in [id number] 09/29/2015 09/29/2015 [facility] test strips called in [id number] 09/29/2015 09/29/2015 [facility] test strips called in [id number] 09/29/2015 09/29/2015 [facility] test strips called in [id number] 09/29/2015 09/29/2015 [facility] test strips called in [id number] 09/29/2015 09/29/2015 [facility] Care test strips called in [id number] 09/29/2015 09/29/2015 Jairo Lyon MD, PA Jairo Lyon MD, PA Follow-Up [id number] 11/05/19 16 11/05/2015 Jairo Lyon MD, PA Jairo Lyon MD, PA Follow-Up [id number] 11/05/19 16 11/05/2015 [facility] Jairo Lyon MD, PA Follow-Up [id number] 11/05/19 16 11/05/2015 [facility] Jairo Lyon MD, PA Follow-Up [id number] 11/05/19 16 11/05/2015 [facility] Jairo Lyon MD, PA Follow-Up [id number] 11/05/19 16 11/05/2015 [facility] Jairo Lyon MD, PA Follow-Up [id number] 11/05/19 16 11/05/2015 [facility] Jairo Lyon MD, PA Follow-Up [id number] 11/05/19 16 11/05/2015 Jairo Lyon MD, PA [facility] Patient here for follow up on medication and diabetes [id number] 11/19/2015 11/19/2015 [facility] Patient here for follow up on medication and diabetes [id number] 11/19/2015 11/19/2015 Jairo Lyon MD, PA [facility] Patient here for follow up on medication and diabetes [id number] 11/19/2015 11/19/2015 [facility] Patient here for follow up on medication and diabetes [id number] 11/19/2015 11/19/2015 [facility] Patient here for follow up on medication and diabetes [id number] 11/19/2015 11/19/2015 [facility] Patient here for follow up on medication and diabetes [id number] 11/19/2015 11/19/2015 [facility] Patient here for follow up on medication and diabetes [id number] 11/19/2015 11/19/2015 [facility] Patient here for follow up on medication and diabetes [id number] 11/19/2015 11/19/2015 Jairo Lyon MD, PA [facility] Care patient here to follow up with diabetes [id number] 02/11/2016 02/11/2016 [facility] Care patient here to follow up with diabetes [id number] 02/11/2016 02/11/2016 [facility] Care patient here to follow up with diabetes [id number] 02/11/2016 02/11/2016 [facility] Care patient here to follow up with diabetes [id number] 02/11/2016 02/11/2016 [facility] Care patient here to follow up with diabetes [id number] 02/11/2016 02/11/2016 [facility] Care patient here to follow up with diabetes [id number] 02/11/2016 02/11/2016 Jairo Lyon MD, PA [facility] flu shot [id number] 02/13/20 16 02/13/2016 [facility] flu shot [id number] 02/13/20 16 02/13/2016 [facility] flu shot [id number] 02/13/20 16 02/13/2016 [facility] flu shot [id number] 02/13/20 16 02/13/2016 [facility] flu shot [id number] 02/13/20 16 02/13/2016 Jairo Lyon MD, PA [facility] patient here to follow up on diabetes [id number] 04/29/2016 04/29/2016 [facility] Care patient here to follow up on diabetes [id number] 04/29/2016 04/29/2016 [facility] patient here to follow up on diabetes [id number] 04/29/2016 04/29/2016 [facility] patient here to follow up on diabetes [id number] 04/29/2016 04/29/2016 Jairo Lyon MD, PA Jairo Lyon MD, PA Follow-Up [id number] 05/06/20 16 05/06/2016 Jairo Lyon MD, PA [facility] Patient here for annyal physical and labs [id number] 06/02/2016 06/02/2016 [facility] Patient here for annyal physical and labs [id number] 06/02/2016 06/02/2016 [facility] Patient here for annyal physical and labs [id number] 06/02/2016 06/02/2016 Jairo Lyon MD, PA [facility] [id number] Annelise Canseco 06/04/2016 06/05/2016 [facility] Primary Care Patient here to over bone density scan [id number] 06/17/2016 06/17/2016 [facility] Primary Care Patient here to over bone density scan [id number] 06/17/2016 06/17/2016 Jairo Lyon MD, PA Procedures Procedure Code Date Perfomer Comments Source Cataract extraction, insertion of intrao cular lens and trabeculectomy [id number] [facility] Colonoscopy [id number] [facility] Foot repair [id number] [facility] Assessment and Plan No Data Provided for This Section Plan of Care No Data Provided for This Section Social History Social History Date Source Social History ElementQualifiersDate Rep orted Tobacco Use: . Are you a: former smoker Jun 17, 2016 Use of recreational / street drugs? . Answer: No Jun 17, 2016 Alcohol Screening: . Points: 0, Interpretation: Negative Jun 17, 2016 Do you have pets? . Status: No Jun 17, 2016 Marital Status: . Single Jun 17, 2016 Caffeine intake? . Status: Yes, What type: Coffee, Tea, How often? Daily Jun 17, 2016 New since last visit: none. Jun 17, 2016 Do you exercise? . Answer: Yes, Type: walking, How often ? Weekly Jun 17, 2016 Do you drink alcohol? . Status: No Jun 17, 2016 06/17/2016 [facility] Social History ElementQualifiersDate Rep orted Tobacco Use: . Are you a: former smoker QUIT TOBACCO 1982 May 06, 2016 Do you drink alcohol? . Status: No May 06, 2016 05/06/2016 Jairo Lyon MD, P A Social History TypeResponse Smoking Status Former smoker; Type: Cigarettes; Ready to change: No; Concerns about tobacco use in household: No; Exposure to Tobacco Smoke None; Cigarette Smoking Last 365 Days No; Reg Smoking Cessation Counseling No 06/16/2015 [facility] Family History Value Date S ource QualifierDescriptionCommentDate Reported Maternal Grandmother Comment not available Jun 02, 2016 Paternal Grandmother Comment not available Jun 02, 2016 Siblings Comment not available Jun 02, 2016 Maternal Grandfather Comment not available Jun 02, 2016 Children Comment not available Jun 02, 2016 Father Comment not available Jun 02, 2016 Paternal Grandfather Comment not available Jun 02, 2016 Mother Comment not available Jun 02, 2016 Other: Comment not available Jun 02, 2016 06/03/2016 [facility] Primary Advance Directives No Data Provided for This Section Functional Status No Data Provided for This Section
--- OUTSIDE RECORDS SUMMARY | 2019-10-15 12:51 | XMS REPORT ---
Author Author Mohsen Tucker Organization [employer] Address Unknown Phone Unavailable Care Team Providers Care Commercial Litigation Associate Name Role Phone Sharonda Tucker CP Unavailable [...]
--- OUTSIDE RECORDS SUMMARY | 2019-10-15 12:51 | XMS REPORT ---
Author Author Mohsen Canseco Organization [employer] Address Unknown Phone Unavailable Care Team Providers Care Mail Handlers Supervisor Name Role Phone Annelise Canseco Unavailable Allergies, Adverse Reactions, Alerts Substance Reaction Event Type N.K.D.A. Info Not Available Non Drug Allergy Problems Problem Type Condition Code Onset Dates Condition Statu s Assessment Gastroesophageal reflux disease without esophagitis K2 1.9 Active Assessment Osteopenia M85.80 Active Assessment Low vitamin D level E55.9 Active Assessment Other specified nutritional anemias D53.8 Active Assessment Coronary artery disease invo lving [place] coronary artery of [place] heart without angina pectoris I25.10 Active Assessment Mixed hyperlipidemia E78.2 Active Problem CAD (coronary artery disease) I25.10 Active Assessment Chronic kidney disease, stage III (moderate) N18.3 Active Problem Essential hypertension I10 Activ e Assessment 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 Active Problem Mixed hyperlipidemia E78.2 Active Problem Other specified nutritional anemias D53.8 Active Problem 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 Problem Onychomycosis B35.1 Active Problem Skin lesion L98.9 Active Problem Chronic kidney disease, stage 3 N18.3 Active Problem Gastroesophageal reflux disease without esophagitis K2 1.9 Active Assessment Essential hypertension I10 Activ e Problem 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 Act alejandra Problem Coronary artery disease invo lving [place] coronary artery of [place] heart without angina pectoris I25.10 Active Problem Osteopenia M85.80 Active Problem Chronic kidney disease, stage III (moderate) N18.3 Active Problem Anemia D64.9 Active Problem Hyperlipidemia E78.5 Active Problem Dry skin L85.3 Active Problem Low vitamin D level E55.9 Active Problem Fatigue R53.83 Active Problem Dyspnea on exertion R06.09 Active Problem Hypertension I10 Active Problem Shortness of breath R06.02 Active Medications Medication Code System Code Instructions Start Date End Date Status Dosage ASA NDC 0 Oral Active 1 tab Amlodipine Besylate NDC 15845487921 10 mg Orally Once a day Active [address] [facility] 13168637776 2000 UNIT Orally Once a day Active [address] [facility] 91548158599 35 MG Orally once a week Active [address] [facility] 24165343389 100 mg Orally Once a day Active 1 tablet NovoLog ND 93368876965 100 UNIT/ML Subcutaneous daily November 23, 2017 Active inject 90-100 units Simvastatin ND 18872937616 20 mg Orally Once a day Active 1 tablet in the evening Iron Formula ND 0 Active not defined Humalog [facility] 48898711000 100 UNIT/ML Subcutaneous daily Active inject 95-[address] [facility] 62303094996 40 mg Orally Once a day Feb 22, 2018 Active 1 capsule Vital Signs Date/Time: Feb 22, 2018 BMI 25.64 Index Weight 189.1 lbs Height 72 in Temperature 98.0 F Cardiac Monitoring Heart Rate 80 /min Blood Pressure Diastolic 60 mm Hg Blood Pressure Systolic 143 mm Hg Results No Known Results Summary Purpose eClinicalWorks Submission
--- OUTSIDE RECORDS SUMMARY | 2019-10-15 12:51 | XMS REPORT ---
Author Author Mohsen Canseco [facility] eClinicalWorks Address Unknown Phone Unavailable Care Team Providers Care Court Advocate Name Role Phone Annelise Canseco Unavailable Allergies, Adverse Reactions, Alerts Substance Reaction Event Type N.K.D.A. Info Not Available Non Drug Allergy Encounters Encounter Location Date patient here for his annuuel physical and labs [facility] July 18, 2015 patient here for labs work [facility] Primary Care August 25, 2015 test strips called in [facility] Primary Care September 15, 2015 test strips called in [facility] Primary Care September 29, 2015 New patient here to [facility] Primary Care May 21, 2015 patient here to follow up on medication [facility] Primary are Jun 04, 2015 Patient here for a follow up [facility] Primary Care Jul 04, 2015 echocardiogram Jairo [place], [place] Jun 26, 2015 Patient here for follow up on medication and diabetes [facility] Care November 19, 2015 Follow-Up Jairo [place], [place] Jun 30, 2015 Problems Problem Type Condition ICD-9 Code Onset Dates Condition Statu s Problem Dry skin L85.3 Active Problem Hyperlipidemia E78.5 Active Problem Chronic kidney disease, stage 3 N18.3 Active Problem Dyspnea on exertion R06.09 Active Problem Shortness of breath R06.02 Active Problem CAD (coronary artery disease) I25.10 Active Problem Type 2 diabetes mellitus with hyperglycemia E11.65 Active Problem Hypertension I10 Active Problem Fatigue R53.83 Active Problem Type 2 diabetes mellitus with other diabetic kid handy complication E11.29 Active Assessment CAD (coronary artery disease) I25.10 Active Assessment Hypertension I10 Active Assessment Type 2 diabetes mellitus with hyperglycemia E11.65 Active Assessment Chronic kidney disease, stage 3 N18.3 Active Problem Low vitamin D level E55.9 Active Assessment Hyperlipidemia E78.5 Active Problem Anemia D64.9 Active Medications Medication Code System Code Instructions Start Date End Date Status Dosage [facility] [address]22 Active Unknow n Vitamin D3 [facility] [address]-68 2000 UNIT Orally Once a day Active 1 capsule Humalog [facility] [address]-23 100 UNIT/ML Subcutaneous daily Active 80-85 units per day Losartan Potassium [facility] [address]-80 100 mg Orally Once a day Active 1 tablet Simvastatin [facility] [address]-25 20 mg Orally Once a day Active 1 tablet in the evening Amlodipine Besylate [facility] [address]-90 10 mg Orally Once a day Active 1 tablet ASA Unknown 0 Oral Active 1 tab Social History Social History Element Qualifiers Date Reported Tobacco Use: . Are you a: never smoker November 19, 2015 Use of recreational / street drugs? . Answer: No November 19, 2015 Alcohol Screening: . Points: 0, Interpretation: Negative November 19, 2015 Do you have pets? . Status: No November 19, 2015 Marital Status: . Single November 19, 2015 Caffeine intake? . Status: Yes, What type: Coffee, Tea, How often? Daily November 19, 2015 New since last visit: none. November 19, 2015 Do you exercise? . Answer: Yes, Type: walking, How often ? Weekly November 19, 2015 Do you drink alcohol? . Status: No November 19, 2015 Vital Signs Date/Time: November 19, 2015 Weight 191.8 lbs Height 72 in Temperature 97.9 F Cardiac Monitoring Heart Rate 65 /min Blood Pressure Diastolic 56 mm Hg Blood Pressure Systolic 130 mm Hg Summary Purpose eClinicalWorks Submission
--- OUTSIDE RECORDS SUMMARY | 2019-10-15 12:51 | XMS REPORT ---
Author Author Mohsen Canseco [facility] eClinicalWorks Address Unknown Phone Unavailable Care Team Providers Care Deputy Fire Chief Name Role Phone Annelise Canseco CP Unavailable Allergies, Adverse Reactions, Alerts Substance Reaction Event Type N.K.D.A. Info Not Available Non Drug Allergy Encounters Encounter Location Date patient here for his annuuel physical and labs [facility] July 18, 2015 patient here for labs work [facility] Primary Care August 25, 2015 Follow-Up Jairo [place], [place] Jun 30, 2015 echocardiogram Jairo [place], [place] Jun 26, 2015 New patient here to est care [facility] Primary Care May 21, 2015 patient here to follow up on medication [facility] Primary C are Jun 04, 2015 Patient here for a follow up [facility] Primary Care Jul 04, 2015 Problems Problem Type Condition ICD-9 Code [...] Date End Date Status Dosage Iron [facility] [address] Active Unknow n Simvastatin [facility] [address]-61 20 mg Orally Once a day Active 1 tablet in the evening Losartan Potassium [facility] [address]-51 100 mg Orally Once a day Active 1 tablet [facility] [address]-61 100 UNIT/ML Subcutaneous as directed Active 55-60 units per day Triamterene-HCTZ [facility] [address]-97 37.5-25 MG Orally Once a day Inactive 1 tablet in the morning Vitamin D3 [facility] [address]-49 2000 UNIT Orally Once a day Active 1 capsule ASA Unknown 0 Oral Active 1 tab Amlodipine Besylate [facility] [address]-72 10 mg Orally Once a day Active 1 tablet Social History Social History Element Qualifiers Date Reported Tobacco Use: . Are you a: never smoker August 24 6 Use of recreational / street drugs? . Answer: No Apri 2015 Alcohol Screening: . Points: 0, Interpretation: Negative August 25, 2015 Do you have pets? . Status: No August 25, 2015 Marital Status: . Single August 25, 2015 Caffeine intake? . Status: Yes, What type: Coffee, Tea, How often? Daily August 25, 2015 New since last visit: none. August 25, 2015 Do you exercise? . Answer: Yes, Type: walking, How often ? Weekly August 25, 2015 Do you drink alcohol? . Status: No August 25, 2015 Vital Signs Date/Time: August 25, 2015 Weight 191.6 lbs Height 72 in Temperature 98.6 F Cardiac Monitoring Heart Rate 69 /min Blood Pressure Diastolic 67 mm Hg Blood Pressure Systolic 126 mm Hg Summary Purpose eClinicalWorks Submission
--- OUTSIDE RECORDS SUMMARY | 2019-10-15 12:51 | XMS REPORT ---
Author Author Mohsen Canseco [facility] eClinicalWorks Address Unknown Phone Unavailable Care Team Providers Care Licsw Name Role Phone Annelise Canseco CP Unavailable Allergies, Adverse Reactions, Alerts Substance Reaction Event Type N.K.D.A. Info Not Available Non Drug Allergy Encounters Encounter Location Date patient here for his annuuel physical and labs [facility] Care July 18, 2015 Follow-Up Jairo Lyon [place], [place] Jun 30, 2015 New patient here to [facility] care [facility] Primary Care May 21, 2015 patient here to follow up on medication [facility] Primary C are Jun 04, 2015 Patient here for a follow up [facility] Primary Care Jul 04, 2015 Problems Problem [...] diabetic kid handy complication E11.29 Active Assessment Chronic kidney disease, stage 3 N18.3 Active Assessment Hyperlipidemia E78.5 Active Assessment CAD (coronary artery disease) I25.10 Active Assessment Type 2 diabetes mellitus with other diab etic kidney complication E11.29 Active Assessment Annual physical exam Z00.00 Active Assessment Hypertension I10 Active Problem Low vitamin D level E55.9 Active Assessment Type 2 diabetes mellitus with hyperglycemia E11.65 Active Problem Anemia D64.9 Active Medications Medication Code System Code Instructions Start Date End Date Status Dosage [facility] [address]-91 100 UNIT/ML Subcutaneous as directed Active 55-60 units per day Vitamin D3 [facility] [address]-35 2000 UNIT Orally Once a day Active 1 capsule [facility] [address] Active Unknow n Amlodipine Besylate [facility] [address]-51 10 mg Orally Once a day Active 1 tablet Losartan Potassium [facility] [address]-66 100 mg Orally Once a day Active 1 tablet ASA Unknown 0 Oral Active 1 tab Simvastatin [facility] [address]-14 20 mg Orally Once a day Active 1 tablet in the evening Ammonium Lactate [facility] [address]-84 12 % Externally Twice a day May 21, 2015 July 20, 2015 Active 1 application to aff ected area Triamterene-HCTZ [facility] [address]-07 37.5-25 MG Orally Once a day Active 1 tablet in the morning Social History Social History Element Qualifiers Date Reported Tobacco Use: . Are you a: never smoker July 17 Use of recreational / street drugs? . Answer: No Romel 2015 Alcohol Screening: . Points: 0, Interpretation: Negative July 18, 2015 Do you have pets? . Status: No July 18, 2015 Marital Status: . Single July 18, 2015 Caffeine intake? . Status: Yes, What type: Coffee, Tea, How often? Daily July 18, 2015 New since last visit: none. July 18, 2015 Do you exercise? . Answer: Yes, Type: walking, How often ? Weekly July 18, 2015 Do you drink alcohol? . Status: No July 18, 2015 Vital Signs Date/Time: July 18, 2015 Weight 190.8 lbs Height 72 in Temperature 98.6 F Cardiac Monitoring Heart Rate 79 /min Blood Pressure Diastolic 66 mm Hg Blood Pressure Systolic 142 mm Hg Summary Purpose eClinicalWorks Submission
--- OUTSIDE RECORDS SUMMARY | 2019-10-15 12:51 | XMS REPORT | Summary of Care ---
Author Author [facility] Organization [facility] Address Unknown Phone Unavailable Encounter SETH Hyman(ZOE) [id number] Date(s): 06/17/15 - 06/17/15 [facility] [address] [place] [address]- [phone] Discharge Disposition: Home Attending Physician: Sharonda Tucker MD Referring Physician: Sharonda Tucker MD Vital Signs Most recent to 1 2 oldest [Reference Range]: Height 177.8 cm (06/16/15 7:46 AM) Temperature Oral 97.4 DegF [96.4-99.1 DegF] (06/16/15 8:16 AM) Blood Pressure 126/60 mmHg 115/61 mmHg [90-140/60-90 mmHg] (06/17/15 11:07 AM) (06/16/15 8:16 AM) Respiratory Rate 18 BRMIN [14-20 BRMIN] (06/17/15 11:07 AM) Peripheral Pulse 72 bpm 64 bpm Rate [60-100 bpm] (06/17/15 11:07 AM) (06/16/15 8:16 AM) Weight 86.364 kg (06/16/15 7:46 AM) Body Mass Index 27.32 m2 (06/16/15 7:46 AM) Problem List Condition Effective Dates Status Health Status Informan t CAD - Coronary Resolved artery disease(Confirmed) Cataract(Confirmed) Resolved Diabetes(Confirmed) Resolved Hypercholesteremia(C Resolved onfirmed) Hypertension(Confirm Resolved ed) Allergies, Adverse Reactions, Alerts Substance Reaction Severity Status NKDA Active Medications acetaminophen 325 mg, 1 tab, Route: PO, Drug form: TAB, Q4H, Dosing Weight 86.364, kg, PRN Sarah n Score 4-6, Start date: 06/17/15 13:12:00, Duration: 30 day, Stop date: 6 13:11:00 Notes: Do not exceed 4 gm/day. (Same as: Tylenol) Start Date: 06/17/15 Stop Date: 06/17/15 Status: Discontinued amLODIPine 10 mg, PO, Daily, 0 Refill(s) Start Date: 06/16/15 Status: Ordered aspirin 81 mg tablet, enteric coated 81 mg = 1 tab, PO, Daily, # 90 tab, 3 Refill(s) Start Date: 06/16/15 Status: Ordered Humalog SUB-Q, pump, 0 Refill(s) Start Date: 06/16/15 Status: Ordered hydrochlorothiazide-triamterene 25 mg-37.5 mg oral capsule 1 cap, PO, Daily, 0 Refill(s) Start Date: 06/16/15 Stop Date: 06/17/15 Status: Discontinued Iron 100 Plus 1 tab, PO, Daily, 0 Refill(s) Start Date: 06/16/15 Status: Ordered losartan 100 mg oral tablet 100 mg = 1 tab, PO, Daily, 0 Refill(s) Start Date: 06/16/15 Status: Ordered morphine Sulfate 2 mg, 1 mL, Route: IVP, Drug form: INJ, ONCE, Dosing Weight 86.364, kg, Start da te: 06/17/15 13:12:00, Stop date: 06/17/15 13:12:00 Notes: (Same as:MORPhine Sulfate) Start Date: 06/17/15 Stop Date: 06/17/15 Status: Ordered normal saline 0.9% IV 1,000 mL 1,000 mL, Rate: 100 ml/hr, Infuse over: 10 hr, Route: IV, Dosing Weight 86.364 k g, Total Volume: 1,000, Start date: 06/17/15 9:41:00, Duration: 30 day, Stop alana e: 07/17/15 9:40:00 Start Date: 06/17/15 Stop Date: 06/17/15 Status: Discontinued ondansetron 4 mg, 2 mL, Route: IVP, Drug form: INJ, Q8H, Dosing Weight 86.364, kg, PRN Nause a & Vomiting, Start date: 06/17/15 13:12:00, Duration: 30 day, Stop date: 07/17/15 13:11:00 Notes: (Same as: Velma) MEDICATION WASTE Product Size: 4 mgProduct Was simin: ___ mg Start Date: 06/17/15 Stop Date: 06/17/15 Status: Discontinued simvastatin 20 mg oral tablet 20 mg = 1 tab, PO, Bedtime, 0 Refill(s) Start Date: 06/16/15 Status: Ordered Sodium Chloride 0.9% IV 300 mL 300 mL, Rate: 100 ml/hr, Infuse over: 3 hr, Route: IV, Dosing Weight 86.364 kg, Total Volume: 300, Start date: 06/17/15 13:12:00, Duration: 24 hr, Stop date: 13:11:00 Start Date: 06/17/15 Stop Date: 06/17/15 Status: Discontinued Vitamin D3 5000 intl units oral tablet 5,000 IntlUnit = 1 tab, PO, Daily, 0 Refill(s) Start Date: 06/16/15 Status: Ordered Results ELECTROLYTES Most recent to 1 oldest [Reference Range]: Sodium Lvl [135-145 135 mEq/L mEq/L] (06/16/15 8:13 AM) Potassium Lvl 4.4 mEq/L [3.5-5.1 mEq/L] (06/16/15 8:13 AM) Chloride Lvl [95-109 100 mEq/L mEq/L] (06/16/15 8:13 AM) CO2 [24-32 mEq/L] 28 mEq/L (06/16/15 8:13 AM) AGAP [10.0-20.0 11.4 mEq/L mEq/L] (06/16/15 8:13 AM) CHEM PANEL Most recent to 1 oldest [Reference Range]: Creatinine Lvl 1.51 mg/dL [0.50-1.40 mg/dL] *HI* (06/16/15 8:13 AM) eGFR 44 mL/min/1.73m2 1 *NA* (06/16/15 8:13 AM) BUN [7-22 mg/dL] 31 mg/dL *HI* (06/16/15 8:13 AM) Glucose Lvl [70-99 175 mg/dL mg/dL] *HI* (06/16/15 8:13 AM) Calcium Lvl 8.9 mg/dL [8.5-10.5 mg/dL] (06/16/15 8:13 AM) 1Result Comment: The eGFR is calculated using the [...] from the National Kidney Disease Education Program ( NKDEP) which additionally recommends that when the eGFR is used in patients with extremes of body mass index for purposes of drug dosing, the eGFR should be mul tiplied by the estimated BMI. HEMATOLOGY Most recent to 1 oldest [Reference Range]: Hgb [14.0-18.0 g/dL] 13.4 g/dL *LOW* (06/16/15 8:13 AM) Hct [42.0-54.0 %] 39.8 % *LOW* (06/16/15 8:13 AM) Platelet [133-450 201 K/CMM K/CMM] (06/16/15 8:00 AM) PT [12.0-14.7 14.4 seconds seconds] (06/16/15 8:13 AM) INR [0.85-1.17] 1.09 (06/16/15 8:13 AM) PTT [22.9-35.8 28.4 seconds seconds] (06/16/15 8:13 AM) Immunizations No data available for this section Procedures Procedure Date Related Diagnosis Body Site Cataract extraction, insertion of intra ocular lens and trabeculectomy Colonoscopy Foot repair Social History Social History Type Response Smoking Status Former smoker; Type: Cigare ttes; Ready to change: No; Concerns about tobacco use in household: No; Exposure to Tobacco Smoke None; Cigarette Smoking Last 365 Days No; Reg Smoking C essation Counseling No Assessment and Plan No data available for this section
--- OUTSIDE RECORDS SUMMARY | 2019-10-15 12:51 | XMS REPORT ---
Author Author Mohsen Tucker Organization eClinicalWorks Address Unknown Phone Unavailable Care Team Providers Care Pararescue Craftsman Name Role Phone Sharonda Tucker CP Unavailable [...]
--- OUTSIDE RECORDS SUMMARY | 2019-10-15 12:51 | XMS REPORT ---
Author Author Mohsen Canseco [facility] eClinicalWorks Address Unknown Phone Unavailable Care Team Providers Care Hotel Receptionist Name Role Phone Annelise Canseco Unavailable Encounters Encounter Location Date patient here for his annuuel physical and labs [facility] Care July 18, 2015 patient here for labs work [facility] Primary Care August 25, 2015 test strips called in [facility] Primary Care September 15, 2015 test strips called in [facility] Primary Care September 29, 2015 New patient here to [facility] care [facility] Primary Care May 21, 2015 patient here to follow up on medication [facility] Primary C are Jun 04, 2015 Patient here for a follow up [facility] Primary Care Jul 04, 2015 Follow-Up Jairo Lyon MD, [place] Jun 30, 2015 echocardiogram Jairo Lyon MD, [place] Jun 26, 2015 Problems Problem Type Condition ICD-9 Code Onset Dates Condition Statu s Problem Dry skin L85.3 Active Problem Hyperlipidemia E78.5 Active Problem Chronic kidney disease, stage 3 N18.3 Active Problem Low vitamin D level E55.9 Active Problem Anemia D64.9 Active Problem Dyspnea on exertion R06.09 Active Problem Shortness of breath R06.02 Active Problem CAD (coronary artery disease) I25.10 Active Problem Type 2 diabetes mellitus with hyperglycemia E11.65 Active Problem Hypertension I10 Active Problem Fatigue R53.83 Active Problem Type 2 diabetes mellitus with other diabetic kid handy complication E11.29 Active Social History Social History Element Qualifiers Date [...] alcohol? . Status: No August 25, 2015 Summary Purpose eClinicalWorks Submission
--- OUTSIDE RECORDS SUMMARY | 2019-10-15 12:51 | XMS REPORT ---
Author Author Mohsen Canseco Organization eClinicalWorks Address Unknown Phone Unavailable Care Team Providers Care Operations Tech Name Role Phone Annelise Canseco Unavailable Allergies, Adverse Reactions, Alerts Substance Reaction Event Type N.K.D.A. Info Not Available Non Drug Allergy Problems Problem Type Condition Code Onset Dates Condition Statu s Assessment Osteopenia M85.80 Active Assessment Low vitamin D level E55.9 Active Assessment Other specified nutritional anemias D53.8 Active Assessment Coronary artery disease invo lving [place] coronary artery of [place] heart without angina pectoris I25.10 Active Problem Dyspnea on exertion R06.09 Active Assessment Mixed hyperlipidemia E78.2 Active Problem CAD (coronary artery disease) I25.10 Active Assessment Chronic kidney disease, stage III (moderate) N18.3 Active Problem Essential hypertension I10 Activ e Problem 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 Problem Mixed hyperlipidemia E78.2 Active Problem Skin lesion L98.9 Active Problem Osteopenia M85.80 Active Assessment Annual physical exam Z00.00 Active Assessment Essential hypertension I10 Activ e Problem Onychomycosis B35.1 Active Assessment 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 Active Problem Coronary artery disease invo lving [place] coronary artery of [place] heart without angina pectoris I25.10 Active Problem [...] Oral Active 1 tab Amlodipine Besylate NDC 01549732453 10 mg Orally Once a day Active 1 tablet Losartan Potassium NDC 21348739039 100 mg Orally Once a day Active 1 tablet Vitamin D3 [facility] 92069767490 2000 UNIT Orally Once a day Active 1 capsule Iron Formula [facility] 78690-24722 Active not def ined Alendronate Sodium [facility] 00441431556 35 MG Orally once a week Active 1 tablet Simvastatin [facility] 83117682684 20 mg Orally Once a day Active 1 tablet in the evening Humalog [facility] 29703763165 100 UNIT/ML Subcutaneous daily Active inject 95-100 units Alendronate Sodium [facility] 53416349972 35MG Orally once a week Active 1 tablet Vital Signs Date/Time: May 26, 2017 BMI 26.59 Index Weight 196.1 lbs Height 72 in Temperature 98.5 F Cardiac Monitoring Heart Rate 77 /min Blood Pressure Diastolic 79 mm Hg Blood Pressure Systolic 121 mm Hg Results No Known Results Summary Purpose eClinicalWorks Submission
--- OUTSIDE RECORDS SUMMARY | 2019-10-15 12:51 | XMS REPORT ---
Author Author Mohsen Canseco Organization eClinicalWorks Address Unknown Phone Unavailable Care Team Providers Care Transition Assistant Name Role Phone Annelise Canseco Unavailable Allergies, Adverse Reactions, Alerts Substance Reaction Event Type N.K.D.A. Info Not Available Non Drug Allergy Encounters Encounter Location Date New patient here to [facility] Primary Care May 21, 2015 Problems Problem Type Condition ICD-9 Code Onset Dates Condition Statu s Assessment Type 2 diabetes mellitus with hyperglycemia E11.65 Active Problem Low vitamin D level E55.9 Active Assessment Type 2 diabetes mellitus with other diab etic kidney complication E11.29 Active Problem Type 2 diabetes mellitus with hyperglycemia E11.65 Active Problem Hypertension I10 Active Problem Type 2 diabetes mellitus with other diabetic kid handy complication E11.29 Active Problem Dry skin L85.3 Active Problem Anemia D64.9 Active Problem Hyperlipidemia E78.5 Active Problem Chronic kidney disease, stage 3 N18.3 Active Assessment Dry skin L85.3 Active Assessment Chronic kidney disease, stage 3 N18.3 Active Assessment Low vitamin D level E55.9 Active Assessment Hyperlipidemia E78.5 Active Assessment Anemia D64.9 Active Assessment Hypertension I10 Active Medications Medication Code System Code Instructions Start Date End Date Status Dosage Vitamin D3 [facility] [address]59 Active Unknown Humalog [facility] [address]-13 100 UNIT/ML Subcutaneous as directed Active 55-60 units per day Triamterene-HCTZ [facility] [address]-04 37.5-25 MG Orally Once a day Active 1 tablet in the morning Iron Formula [facility] [address]70-[address]93 Active Unknow n Ammonium Lactate [facility] [address]-05 12 % Externally Twice a day May 21, 2015 July 20, 2015 Active 1 application to aff ected area Simvastatin [facility] [address]-86 20 MG Orally Once a day Active 1 tablet in the evening Amlodipine Besylate [facility] [address]-01 10 MG Orally Once a day Active 1 tablet Losartan Potassium [facility] [address]-88 100 MG Orally Once a day Active 1 tablet ASA Unknown 0 Oral Active 1 tab Social History Social History Element Qualifiers Date Reported Tobacco Use: . Are you a: never smoker May 21, 2015 Use of recreational / street drugs? . Answer: No May 21, 2015 Do you have pets? . Status: No May 21, 2015 Marital Status: . Single May 21, 2015 Caffeine intake? . Status: Yes, What type: Coffee, Tea, How often? Daily May 21, 2015 New since last visit: none. May 21, 2015 Do you exercise? . Answer: Yes, Type: walking, How often ? Weekly May 21, 2015 Do you drink alcohol? . Status: No May 21, 2015 Vital Signs Date/Time: May 21, 2015 Weight 190.8 lbs Height 72 in Temperature 98.5 F Cardiac Monitoring Heart Rate 66 /min Blood Pressure Diastolic 64 mm Hg Blood Pressure Systolic 124 mm Hg Summary Purpose eClinicalWorks Submission
--- OUTSIDE RECORDS SUMMARY | 2019-10-15 12:51 | XMS REPORT ---
Author Author Mohsen Canseco Organization [employer] Address Unknown Phone Unavailable Care Team Providers Care Receiving Associate Store Name Role Phone Annelise Canseco CP Unavailable Allergies, Adverse Reactions, Alerts Substance Reaction Event Type N.K.D.A. Info Not Available Non Drug Allergy Encounters Encounter Location Date New patient here to [facility] Primary Care May 21, 2015 patient here to follow up on medication [facility] Primary C are Jun 04, 2015 Problems Problem Type Condition ICD-9 Code Onset Dates Condition Statu s Problem Anemia D64.9 Active Problem Chronic kidney disease, stage 3 N18.3 Active Problem Dry skin L85.3 Active Problem Shortness of breath R06.02 Active Problem Fatigue R53.83 Active Problem Dyspnea on exertion R06.09 Active Problem Hypertension I10 Active Problem Hyperlipidemia E78.5 Active Problem Type 2 diabetes mellitus with other diabetic kid handy complication E11.29 Active Problem Type 2 diabetes mellitus with hyperglycemia E11.65 Active Assessment Hyperlipidemia E78.5 Active Assessment Hypertension I10 Active Assessment Chronic kidney disease, stage 3 N18.3 Active Assessment Fatigue R53.83 Active Assessment Shortness of breath R06.02 Active Assessment Type 2 diabetes mellitus with hyperglycemia E11.65 Active Assessment Dyspnea on exertion R06.09 Active Assessment Type 2 diabetes mellitus with other diab etic kidney complication E11.29 Active Problem Low vitamin D level E55.9 Active Medications Medication Code System Code Instructions Start Date End Date Status Dosage Ammonium Lactate [facility] [address]-17 12 % Externally Twice a day May 21, 2015 July 20, 2015 Active 1 application to aff ected area Simvastatin [facility] [address]-71 20 MG Orally Once a day Active 1 tablet in the evening Iron Formula [facility] 03227-[address]21 Active Unknow n ProAir HFA [facility] [address]-00 108 (90 Base) MC G/ACT Inhalation every 4-6 hrs as needed Jun 04, 2015 Active 2 puffs as neede d Losartan Potassium [facility] [address]-57 100 MG Orally Once a day Active 1 tablet Amlodipine Besylate [facility] [address]-08 10 MG Orally Once a day Active 1 tablet Vitamin D3 [facility] 32[address]-47107 Active Unknown Triamterene-HCTZ [facility] [address]-63 37.5-25 MG Orally Once a day Active 1 tablet in the morning Humalog [facility] [address]-85 100 UNIT/ML Subcutaneous as directed Active 55-60 units per day ASA Unknown 0 Oral Active 1 tab Social History Social History Element Qualifiers Date Reported Tobacco Use: . Are you a: never smoker Jun 04, 2015 Use of recreational / street drugs? . Answer: No Jun 04, 2015 Do you have pets? . Status: No Jun 04, 2015 Marital Status: . Single Jun 04, 2015 Caffeine intake? . Status: Yes, What type: Coffee, Tea, How often? Daily Jun 04, 2015 New since last visit: none. Jun 04, 2015 Do you exercise? . Answer: Yes, Type: walking, How often ? Weekly Jun 04, 2015 Do you drink alcohol? . Status: No Jun 04, 2015 Vital Signs Date/Time: Jun 04, 2015 Weight 189.6 lbs Height 72 in Temperature 98.6 F Cardiac Monitoring Heart Rate 74 /min Blood Pressure Diastolic 66 mm Hg Blood Pressure Systolic 114 mm Hg Summary Purpose eClinicalWorks Submission
--- OUTSIDE RECORDS SUMMARY | 2019-10-15 12:51 | XMS REPORT ---
Author Author Mohsen Canseco [facility] eClinicalWorks Address Unknown Phone Unavailable Care Team Providers Care Microbiology Manager Name Role Phone Annelise Canseco CP Unavailable Allergies, Adverse Reactions, Alerts Substance Reaction Event Type N.K.D.A. Info Not Available Non Drug Allergy Problems Problem Type Condition Code Onset Dates Condition Statu s Assessment Osteopenia M85.80 Active Assessment Low vitamin D level E55.9 Active Problem Shortness of breath R06.02 Active Assessment Other specified nutritional anemias D53.8 Active Problem Dyspnea on exertion R06.09 Active Assessment Coronary artery disease invo lving [place]ain[place] coronary artery of [place] heart without angina pectoris I25.10 Active Problem CAD (coronary artery disease) I25.10 Active Problem Coronary artery disease invo lving [place] coronary artery of [place] heart without angina pectoris I25.10 Active Problem Other specified nutritional anemias D53.8 Active Problem Osteopenia M85.80 Active Problem 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 Act alejandra Assessment 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 Active Assessment Chronic kidney disease, stage III (moderate) N18.3 Active Problem Skin lesion L98.9 Active Assessment Mixed hyperlipidemia E78.2 Active Problem Essential hypertension I10 Activ e Problem Mixed hyperlipidemia E78.2 Active Problem 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 Problem Chronic kidney disease, stage III (moderate) N18.3 Active Problem Anemia D64.9 Active Problem Dry skin L85.3 Active Assessment Essential hypertension I10 Activ e Problem Low vitamin D level E55.9 Active Problem Hypertension I10 Active Problem Fatigue R53.83 Active Problem Chronic kidney disease, stage 3 N18.3 Active Problem Hyperlipidemia E78.5 Active Medications Medication Code System Code Instructions Start Date End Date Status Dosage Vitamin D3 [facility] [address]-27 2000 UNIT Orally Once a day Active 1 capsule Losartan Potassium [facility] [address]-26 100 mg Orally Once a day Active 1 tablet Amlodipine Besylate [facility] [address]-90 10 mg Orally Once a day Active 1 tablet ASA ND 0 Oral Active 1 tab Alendronate Sodium [facility] 25227046298 35MG Orally once a week Active 1 tablet Iron Formula [facility] 61911-[address]10 Active not def ined Simvastatin [facility] [address]-21 20 mg Orally Once a day Active 1 tablet in the evening Alendronate Sodium [facility] [address]-31 35 MG Orally once a week Active 1 tablet Humalog [facility] [address]-93 100 Subcutaneous daily Act alejandra inject 80 to 85 units Vital Signs Date/Time: Dec 16, 2016 BMI 26.25 Index Weight 193.6 lbs Height 72 in Temperature 98.1 F Cardiac Monitoring Heart Rate 55 /min Blood Pressure Diastolic 78 mm Hg Blood Pressure Systolic 147 mm Hg Results No Known Results Summary Purpose eClinicalWorks Submission
--- OUTSIDE RECORDS SUMMARY | 2019-10-15 12:51 | XMS REPORT ---
Author Author Mohsen Tucker Organization e[employer] Address Unknown Phone Unavailable Care Team Providers Care Sr. Payroll Manager Name Role Phone Sharonda Tucker CP Unavailable Allergies, Adverse Reactions, Alerts Substance Reaction Event Type N.K.D.A. Info Not Available Non Drug Allergy Encounters Encounter Location Date Follow-Up Jairo [place], [place] Jun 30, 2015 New patient here to [facility] Primary Care May 21, 2015 patient here to follow up on medication [facility] Primary C are Jun 04, 2015 Patient here for a follow up [facility] Primary Care Jul 04, 2015 Problems Problem Type Condition ICD-9 Code Onset Dates Condition Statu s Assessment Pure hypercholesterolemia E78.0 Ac tive Problem Hypertensive heart disease without heart failure I11.9 Active Problem Pure hypercholesterolemia E78.0 Ac tive Problem Bruit R09.89 Active Assessment Bruit R09.89 Active Assessment Hypertensive heart disease without heart failure I11.9 Active Problem CAD without angina I25.10 Active Assessment CAD without angina I25.10 Active Medications Medication Code System Code Instructions Start Date End Date Status Dosage Ammonium Lactate [facility] [address]-95 12 % Externally Twice a day Active 1 application to affected area Losartan Potassium [facility] [address]-89 100 MG Orally Once a day Active 1 tablet Triamterene-HCTZ [facility] [address]-84 37.5-25 MG Orally Once a day Active 1 tablet in the morning Humalog [facility] [address]-04 100 UNIT/ML Subcutaneous Active Unknown Amlodipine Besylate [facility] [address]-99 10 MG Orally Once a day Active 1 tablet Simvastatin [facility] [address]-43 20 MG Orally Once a day Active 1 tablet in the evening Aspirin [facility] 8[address]-47570 81 MG Orally Once a day Act alejandra 1 tablet ProAir HFA [facility] [address]-40 108 (90 Base) MCG/ACT Inhal ation every 4 hrs Active 2 puffs as needed Social History Social History Element Qualifiers Date Reported Tobacco Use: . Are you a: former smoker QUIT TOBACCO 1982 Jul 08, 2015 Do you drink alcohol? . Status: No Jul 08, 2015 Vital Signs Date/Time: Jun 30, 2015 Weight 190 lbs Cardiac Monitoring Heart Rate 65 /min Blood Pressure Diastolic 60 mm Hg Blood Pressure Systolic 125 mm Hg Summary Purpose eClinicalWorks Submission
--- OUTSIDE RECORDS SUMMARY | 2019-10-15 12:51 | XMS REPORT ---
Author Author Mohsen Canseco Organization [employer] Address Unknown Phone Unavailable Care Team Providers Care Apparel Manufacture Instructor Name Role Phone Annelise Canseco Unavailable Allergies, Adverse Reactions, Alerts Substance Reaction Event Type N.K.D.A. Info Not Available Non Drug Allergy Encounters Encounter Location Date New patient here to [facility] Primary Care May 21, 2015 patient here to follow up on medication [facility] Primary C are Jun 04, 2015 Patient here for a follow up [facility] Primary Care Jul 04, 2015 Problems [...] I25.10 Active Assessment Chronic kidney disease, stage 3 N18.3 Active Assessment Type 2 diabetes mellitus with hyperglycemia E11.65 Active Assessment Type 2 diabetes mellitus with other diab etic kidney complication E11.29 Active Assessment Hyperlipidemia E78.5 Active Problem Low vitamin D level E55.9 Active Assessment Hypertension I10 Active Problem Anemia D64.9 Active Medications Medication Code System Code Instructions Start Date End Date Status Dosage Amlodipine Besylate [facility] [address]-61 10 mg Orally Once a day Active 1 tablet Humalog [facility] [address]-09 100 UNIT/ML Subcutaneous as directed Active 55-60 units per day Ammonium Lactate [facility] [address]-01 12 % Externally Twice a day May 21, 2015 July 20, 2015 Active 1 application to aff ected area Iron [facility] [address] Active Unknow n ASA Unknown 0 Oral Active 1 tab Simvastatin [facility] [address]-75 20 mg Orally Once a day Active 1 tablet in the evening Losartan Potassium [facility] [address]-59 100 mg Orally Once a day Active 1 tablet Triamterene-HCTZ [facility] [address]-93 37.5-25 MG Orally Once a day Active 1 tablet in the morning Vitamin D3 [facility] 62719-[address]52 Active Unknown ProAir HFA [facility] [address]-17 108 (90 Base) MC G/ACT Inhalation every 4-6 hrs as needed Jun 04, 2015 Inactive 2 puffs as neede d Social History Social History Element Qualifiers Date Reported Tobacco Use: . Are you a: never smoker Jul 04, 2015 Use of recreational / street drugs? . Answer: No Jul 04, 2015 Alcohol Screening: . Points: 0, Interpretation: Negative Jul 04, 2015 Do you have pets? . Status: No Jul 04, 2015 Marital Status: . Single Jul 04, 2015 Caffeine intake? . Status: Yes, What type: Coffee, Tea, How often? Daily Jul 04, 2015 New since last visit: none. Jul 04, 2015 Do you exercise? . Answer: Yes, Type: walking, How often ? Weekly Jul 04, 2015 Do you drink alcohol? . Status: No Jul 04, 2015 Vital Signs Date/Time: Jul 04, 2015 Weight 189.5 lbs Height 72 in Temperature 98.6 F Cardiac Monitoring Heart Rate 77 /min Blood Pressure Diastolic 71 mm Hg Blood Pressure Systolic 132 mm Hg Summary Purpose eClinicalWorks Submission
--- OUTSIDE RECORDS SUMMARY | 2019-10-15 12:51 | XMS REPORT | Summary of Care ---
Author Author [facility] Organization [facility] Address Unknown Phone Unavailable Encounter HQ Yenni(ZOE) [id number] Date(s): 06/04/16 - 06/04/16 [facility] [address] [place] [address]- Discharge Disposition: Home or Self Care Attending Physician: Annelise Canseco MD Referring Physician: Annelise Canseco MD Vital Signs No data available for this section Problem List Condition Effective Dates Status Health Status Informan t CAD - Coronary Resolved artery disease(Confirmed) Cataract(Confirmed) Resolved Diabetes(Confirmed) Resolved Hypercholesteremia(C Resolved onfirmed) Hypertension(Confirm Resolved ed) Allergies, Adverse Reactions, Alerts Substance Reaction Severity Status NKDA Active Medications No data available for this section [...]
--- OUTSIDE RECORDS SUMMARY | 2019-10-15 12:51 | XMS REPORT ---
Author Author Mohsen Tucker Organization eClinicalWorks Address Unknown Phone Unavailable Care Team Providers Care Supervisor Inventory Merchandising Name Role Phone Sharonda Tucker CP Unavailable [...]
--- OUTSIDE RECORDS SUMMARY | 2019-10-15 12:51 | XMS REPORT ---
Author Author Mohsen Canseco [facility] eClinicalWorks Address Unknown Phone Unavailable Care Team Providers Care Ssis Etl Developer Name Role Phone Annelise Canseco Unavailable Encounters Encounter Location Date patient here for his annuuel physical and labs [facility] July 18, 2015 patient here for labs work [facility] Primary Care August 25, 2015 test strips called in [facility] Primary Care September 15, 2015 Follow-Up Jairo [place], [place] Jun 30, 2015 New patient here to [facility] care [facility] Primary Care May 21, 2015 patient here to follow up on medication [facility] Primary C are Jun 04, 2015 Patient here for a follow up [facility] Primary Care Jul 04, 2015 echocardiogram [...]
--- OUTSIDE RECORDS SUMMARY | 2019-10-15 12:51 | XMS REPORT ---
Author Author Mohsen Tucker [facility] eClinicalWorks Address Unknown Phone Unavailable Care Team Providers Care Caustics Loader Name Role Phone Sharonda Tucker CP Unavailable Encounters Encounter Location Date patient here for his annuuel physical and labs [facility] Care July 18, 2015 Follow-Up Jairo Lyon MD, [place] Jun 30, 2015 echocardiogram Jairo [place], [place] Jun 26, 2015 New patient here to [facility] Primary Care May 21, 2015 patient here to follow up on medication [facility] Primary C are Jun 04, 2015 Patient here for a follow up [facility] Primary Care Jul 04, 2015 Social History Social History Element Qualifiers Date Reported Tobacco Use: . Are you a: former smoker QUIT TOBACCO 1981Jul 08, 2015 Do you drink alcohol? . Status: No Jul 08, 2015 Summary Purpose eClinicalWorks Submission
--- OUTSIDE RECORDS SUMMARY | 2019-10-15 12:51 | XMS REPORT ---
Author Author Mohsen Tucker Organization eClinicalWorks Address Unknown Phone Unavailable Care Team Providers Care Fiber Glass Worker Name Role Phone Sharonda Tucker CP Unavailable [...] Instructions Start Date End Date Status Dosage Simvastatin ND 73187709851 20 mg Orally Once a day Active 1 tablet in the evening ProAir HFA [facility] 88636148434 108 (90 Base) MCG/ACT Inhalation ever y 4 hrs Active 2 puffs as needed Aspirin ND 24484140500 81 MG Orally Once a day Acti ve 1 tablet Valsartan-Hydrochlorothiazide ND 32503147025 320-12.5 MG Orally Once a day Active 1 tablet Amlodipine Besylate ND 89525151037 10 mg Orally Once a day Active 1 tablet Ammonium Lactate ND 35410465387 12 % Externally Twice a day Active 1 application to affected area Losartan Potassium ND 52826585145 100 MG Orally Once a day Active 1 tablet Alendronate Sodium ND 68400183295 35 MG Orally Act alejandra 1 tablet Humalog ND 89355557049 100 UNIT/ML Subcutaneous Ac tive not defined Triamterene-HCTZ ND 55842955747 37.5-25 MG Orally Once a day Active 1 tablet in the morning Vital Signs Date/Time: Mar 05, 2019 BMI 28.41 Index Weight 198 lbs Height 5ft 10 in in Cardiac Monitoring Heart Rate 83 /min Blood Pressure Diastolic 71 mm Hg Blood Pressure Systolic 143 mm Hg Results No Known Results Summary Purpose eClinicalWorks Submission
--- OUTSIDE RECORDS SUMMARY | 2019-10-15 12:51 | XMS REPORT ---
Author Author Mohsen Canseco [facility] eClinicalWorks Address Unknown Phone Unavailable Care Team Providers Care Network/Telecom Engineer Name Role Phone Annelise Canseco CP Unavailable [...] Active Assessment Coronary artery disease invo lving [place] coronary artery of [place] heart without angina pectoris I25.10 Active Problem [...] Active Problem Coronary artery disease invo lving [place] coronary artery of [place] heart without angina pectoris I25.10 Active Problem [...] ASA NDC 0 Oral Active 1 tab Simvastatin ND 82793467875 20 mg Orally Once a day Active 1 tablet in the evening Humalog [facility] 54101325627 100 UNIT/ML Subcutaneous daily Active inject 95-100 units Losartan Potassium [facility] 40519624985 100 mg Orally Once a day Active 1 tablet Amlodipine Besylate [facility] 26300387527 10 mg Orally Once a day Active 1 tablet Alendronate Sodium [facility] 55019744339 35MG Orally once a week Active 1 tablet Alendronate Sodium [facility] 80523539488 35 MG Orally once a week August 16, 2017 Active 1 tablet Iron Formula [facility] 98[address]-27591 Active not def ined Vitamin D3 [facility] 96738242779 2000 UNIT Orally Once a day Active 1 capsule Vital Signs Date/Time: Feb 17, 2017 BMI 26.81 Index Weight 197.7 lbs Height 72 in Temperature 97.0 F Cardiac Monitoring Heart Rate 64 /min Blood Pressure Diastolic 67 mm Hg Blood Pressure Systolic 132 mm Hg Results No Known Results Summary Purpose eClinicalWorks Submission
--- OUTSIDE RECORDS SUMMARY | 2019-10-15 12:51 | XMS REPORT ---
Author Author Mohsen Tucker Organization eClinicalWorks Address Unknown Phone Unavailable Care Team Providers Care Peat Shredder Tender Name Role Phone Sharonda Tucker CP Unavailable Allergies, Adverse Reactions, Alerts Substance Reaction Event Type N.K.D.A. 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.10 Active Assessment Hypertensive heart disease without heart failure I11.9 Active Assessment CAD without angina I25.10 Active Problem Bruit R09.89 Active Medications Medication Code System Code Instructions Start Date End Date Status Dosage Losartan Potassium ND 27448384942 100 MG Orally Once a day Active 1 tablet Aspirin [facility] 2001 51846529824 81 MG Orally Once a day Acti ve 1 tablet Amlodipine Besylate ND 92824323244 10 mg Orally Once a day Active 1 tablet Alendronate Sodium ND 23059898405 35 MG Orally Act alejandra 1 tablet Triamterene-HCTZ ND 37777921544 37.5-25 MG Orally Once a day Active 1 tablet in the morning ProAir HFA [facility] 49463464885 108 (90 Base) MCG/ACT Inhalation ever y 4 hrs Active 2 puffs as needed Valsartan-Hydrochlorothiazide ND 88840886158 320-12.5 MG Orally Once a day Active 1 tablet Simvastatin ND 38843295972 20 mg Orally Once a day Active 1 tablet in the evening Humalog ND 88794287863 100 UNIT/ML Subcutaneous Ac tive not defined Ammonium Lactate ND 21167993938 12 % Externally Twice a day Active 1 application to affected area Vital Signs Date/Time: May 30, 2019 BMI 28.41 Index Weight 198 lbs Height 5ft 10 in in Cardiac Monitoring Heart Rate 64 /min Blood Pressure Diastolic 69 mm Hg Blood Pressure Systolic 143 mm Hg Results No Known Results Summary Purpose eClinicalWorks Submission
--- OUTSIDE RECORDS SUMMARY | 2019-10-15 12:52 | XMS REPORT ---
Author Author Mohsen Canseco [facility] eClinicalWorks Address Unknown Phone Unavailable Care Team Providers Care Hedge Fund Accountant Name Role Phone Annelise Canseco Unavailable Allergies, Adverse Reactions, Alerts Substance Reaction Event Type N.K.D.A. Info Not Available Non Drug Allergy Encounters Encounter Location Date patient here for his annuuel physical and labs [facility] Care July 18, 2015 patient here for labs work [facility] Primary Care August 25, 2015 test strips called in [facility] September 15, 2015 test strips called in [facility] September 29, 2015 New patient here to [facility] May 21, 2015 patient here to follow up on medication [facility] Primary C are Jun 04, 2015 Patient here for a follow up [facility] Primary Care Jul 04, 2015 flu shot [facility] Feb 13, 2016 Patient here for follow up on medication and diabetes [facility] Primary Care November 19, 2015 patient here to follow up with diabetes [facility] are Feb 11, 2016 Follow[place]Up [place], [place] November 05, 2015 Follow-Up Jairo Lyon [place], [place] Jun [...] diabetic kid handy complication E11.29 Active Assessment Need for influenza vaccination Z23 Active Problem Low vitamin D level E55.9 Active Problem Anemia D64.9 Active Medications Medication Code System Code Instructions Start Date End Date Status Dosage Iron Formula [facility] 12720-39150 Active Unknow n Simvastatin [facility] [address]-56 20 mg Orally Once a day Active 1 tablet in the evening Amlodipine Besylate [facility] [address]-75 10 mg Orally Once a day Active 1 tablet Vitamin D3 [facility] [address]-31 2000 UNIT Orally Once a day Active 1 capsule Losartan Potassium [facility] [address]-59 100 mg Orally Once a day Active 1 tablet Humalog [facility] [address]-27 100 Subcutaneous daily Ac tive inject 80 to 85 units ASA Unknown 0 Oral Active 1 tab Social History Social History Element Qualifiers Date Reported Tobacco Use: . Are you a: never smoker Feb 13, 2016 Use of recreational / street drugs? . Answer: No Feb 13, 2016 Alcohol Screening: . Points: 0, Interpretation: Negative Feb 13, 2016 Do you have pets? . Status: No Feb 13, 2016 Marital Status: . Single Feb 13, 2016 Caffeine intake? . Status: Yes, What type: Coffee, Tea, How often? Daily Feb 13, 2016 New since last visit: none. Feb 13, 2016 Do you exercise? . Answer: Yes, Type: walking, How often ? Weekly Feb 13, 2016 Do you drink alcohol? . Status: No Feb 13, 2016 Vital Signs Date/Time: Feb 13, 2016 Weight 192.7 lbs Height 72 in Temperature 97.9 F Cardiac Monitoring Heart Rate 61 /min Blood Pressure Diastolic 66 mm Hg Blood Pressure Systolic 133 mm Hg Immunizations Vaccine Administration Date FLU SHOT 3 & UP Feb 13, 2016 Summary Purpose eClinicalWorks Submission
--- OUTSIDE RECORDS SUMMARY | 2019-10-15 12:52 | XMS REPORT ---
Author Author LEE Jason Organization eClinicalWorks Address Unknown Phone Unavailable Care Team Providers Care Media Account Executive Name Role Phone Huan Jason CP Unavailable Allergies No Known Allergies Problems Problem Type Condition Code Onset Dates Condition Statu s Problem Other and unspecified hyperlipidemia E78.5 Active Problem Essential (primary) hypertension I10 Active Problem Obesity (BMI 30-39.9) E66.9 Active Assessment Essential (primary) hypertension I10 Active Assessment Encounter for general adult medical examination with abnormal findings Z00.01 Active Problem Type 1 diabetes mellitus with diabetic neuropathy E10. 40 Active Medications Medication Code System Code Instructions Start Date End Date Status Dosage Simvastatin 20 mg Tab [facility][NOTE 3] 01758429887 20 mg orally once a day Active 1 tablet Amlodipine Besylate [facility][NOTE 3] 83524065135 10 mg Orally Once a day May 24, 2018 Active 1 tablet alendronate 35 mg Tab [facility][NOTE 3] 39899335301 orally ONCE A WEEK Au g 2018 Active 1 tablet Valsartan-Hydrochlorothiazide [facility][NOTE 3] 74818000082 320-25 MG O rally Once a day May 24, 2018 Active 1 tablet Humalog [facility][NOTE 3] 62757965443 100 UNIT/ML Subcutaneous refill for pu mp Jun 21, 2018 Active inject 140 units Results No Known Results Summary Purpose eClinicalWorks Submission
--- OUTSIDE RECORDS SUMMARY | 2019-10-15 12:52 | XMS REPORT ---
Author Author Mohsen Canseco [facility] eClinicalWorks Address Unknown Phone Unavailable Care Team Providers Care Customer Facilities Supervisor Name Role Phone Annelise Canseco Unavailable Allergies, Adverse Reactions, Alerts Substance Reaction Event Type N.K.D.A. Info Not Available Non Drug Allergy Encounters Encounter Location Date patient here for his annuuel physical and labs [facility] July 18, 2015 patient here for labs work [facility] Primary Care August 25, 2015 test strips called in [facility] Care September 15, 2015 test strips called in [facility] Primary Care September 29, 2015 New patient here to [facility] Primary Care May 21, 2015 echocardiogram [place], [place] Jun 26, 2015 patient here to follow up on medication [facility] Primary C are Jun 04, 2015 Follow-Up Jairo [place], [place] November 05, 2015 Patient here for a follow up [facility] Primary Care Jul 04, 2015 Follow-Up Jairo [place], [place] Jun 30, 2015 Patient here for follow up on medication and diabetes [facility] Primary Care November 19, 2015 patient here to follow up with diabetes [facility] C are Feb 11, 2016 Problems Problem Type Condition ICD-9 Code Onset [...] diabetic kid handy complication E11.29 Active Assessment Type 2 diabetes mellitus with hyperglycemia E11.65 Active Assessment Hyperlipidemia E78.5 Active Assessment Hypertension I10 Active Assessment CAD (coronary artery disease) I25.10 Active Problem Low vitamin D level E55.9 Active Assessment Chronic kidney disease, stage 3 N18.3 Active Problem Anemia D64.9 Active Medications Medication Code System Code Instructions Start Date End Date Status Dosage Amlodipine Besylate [facility] [address]-22 10 mg Orally Once a day Active 1 tablet Iron Formula [facility] 40745-29307 Active Unknow n Humalog [facility] [address]-46 100 Subcutaneous daily Ac tive inject 80 to 85 units Losartan Potassium [facility] [address]-45 100 mg Orally Once a day Active 1 tablet Simvastatin [facility] [address]-13 20 mg Orally Once a day Active 1 tablet in the evening ASA Unknown 0 Oral Active 1 tab Vitamin D3 [facility] [address]-70 2000 UNIT Orally Once a day Active 1 capsule Social History Social History Element Qualifiers Date Reported Tobacco Use: . Are you a: never smoker Feb 11, 2016 Use of recreational / street drugs? . Answer: No Feb 11, 2016 Alcohol Screening: . Points: 0, Interpretation: Negative Feb 11, 2016 Do you have pets? . Status: No Feb 11, 2016 Marital Status: . Single Feb 11, 2016 Caffeine intake? . Status: Yes, What type: Coffee, Tea, How often? Daily Feb 11, 2016 New since last visit: none. Feb 11, 2016 Do you exercise? . Answer: Yes, Type: walking, How often ? Weekly Feb 11, 2016 Do you drink alcohol? . Status: No Feb 11, 2016 Vital Signs Date/Time: Feb 11, 2016 Weight 192.6 lbs Height 72 in Temperature 98.1 F Cardiac Monitoring Heart Rate 61 /min Blood Pressure Diastolic 68 mm Hg Blood Pressure Systolic 152 mm Hg Summary Purpose eClinicalWorks Submission
--- OUTSIDE RECORDS SUMMARY | 2019-10-15 12:52 | XMS REPORT ---
Author Author Mohsen Tucker [facility] eClinicalWorks Address Unknown Phone Unavailable Care Team Providers Care Hardening Machine Operator Helper Name Role Phone Sharonda Tucker CP Unavailable Allergies, Adverse Reactions, Alerts Substance Reaction Event Type N.K.D.A. Info Not Available Non Drug Allergy Encounters Encounter Location Date patient here for his annuuel physical and labs [facility] Care July 18, 2015 patient here for labs work [facility] August 25, 2015 test strips called in [facility] September 15, 2015 test strips called in [facility] September 29, 2015 New patient here to [facility] May 21, 2015 Follow-Up Jairo [place], [place] November 05, 2015 patient here to follow up on medication [facility] Primary are Jun 04, 2015 Patient here for a follow up [facility] Primary Care Jul 04, 2015 echocardiogram [place]airo [place], [place] Jun 26, 2015 Patient here for follow up on medication and diabetes [facility] Primary Care November 19, 2015 Follow-Up Jairo [...] Instructions Start Date End Date Status Dosage ProAir [facility] [address]-37 108 (90 Base) MCG/ACT Inhal ation every 4 hrs Active 2 puffs as needed [facility] [address]-26 37.5-25 MG Orally Once a day Active 1 tablet in the morning Humalog [facility] [address]-40 100 UNIT/ML Subcutaneous Active Unknown Amlodipine Besylate [facility] [address]-47 10 MG Orally Once a day Active 1 tablet Aspirin [facility] 19288-14048 81 MG Orally Once a day Act alejandra 1 tablet Ammonium Lactate [facility] [address]-47 12 % Externally Twice a day Active 1 application to affected area Simvastatin [facility] [address]-97 20 MG Orally Once a day Active 1 tablet in the evening Losartan Potassium [facility] [address]-13 100 MG Orally Once a day Active 1 tablet Social History Social History Element Qualifiers Date Reported Tobacco Use: . Are you a: former smoker QUIT TOBACCO 1981November 05, 2015 Do you drink alcohol? . Status: No November 05, 2015 Vital Signs Date/Time: November 05, 2015 Weight 195 lbs Cardiac Monitoring Heart Rate 79 /min Blood Pressure Diastolic 79 mm Hg Blood Pressure Systolic 125 mm Hg Summary Purpose eClinicalWorks Submission
--- OUTSIDE RECORDS SUMMARY | 2019-10-15 12:52 | XMS REPORT ---
Author Author Mohsen Canseco [facility] eClinicalWorks Address Unknown Phone Unavailable Care Team Providers Care Turpentine Distiller Name Role Phone Annelise Canseco Unavailable Allergies, Adverse Reactions, Alerts Substance Reaction Event Type N.K.D.A. Info Not Available Non Drug Allergy Encounters Encounter Location Date patient here for his annuuel physical and labs [facility] Care July 18, 2015 patient here for labs work [facility] Primary Care August 25, 2015 test strips called in [facility] September 15, 2015 test strips called in [facility] Care September 29, 2015 New patient here to [facility] Primary Care May 21, 2015 patient here to follow up on medication [facility] Primary C are Jun 04, 2015 Patient here for a follow up [facility] Care Jul 04, 2015 flu shot [facility] Care Feb 13, 2016 Patient here for follow up on medication and diabetes [facility] Primary Care November 19, 2015 patient here to follow up with diabetes [facility] Primary C are Feb 11, 2016 echocardiogram Jairo Lyon [place], [place] Jun 26, 2015 Follow-Up Jairo [place], [place] November 05, 2015 Patient here to over bone density scan [facility] re Jun 17, 2016 Follow-Up Jairo [place], [place] Jun 30, 2015 patient here to follow up on diabetes [facility] Primary Car e Apr 29, 2016 Patient here for annyal physical and labs [facility] Jun 02, 2016 Problems Problem Type Condition ICD-9 Code Onset Dates Condition Statu s Assessment Osteopenia M85.80 Active Problem Fatigue R53.83 Active Assessment Low vitamin D level E55.9 Active Problem Shortness of breath R06.02 Active Assessment Other specified nutritional anemias D53.8 Active Problem Dyspnea on exertion R06.09 Active Problem Other specified nutritional anemias D53.8 Active Problem CAD (coronary artery disease) I25.10 Active Problem 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 Act alejandra Problem 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 Assessment Essential hypertension I10 Activ e Assessment Mixed hyperlipidemia E78.2 Active Problem Osteopenia M85.80 Active Assessment Coronary artery disease invo lving [place] coronary artery of [place] heart without angina pectoris I25.10 Active Problem Mixed hyperlipidemia E78.2 Active Problem Coronary artery disease invo lving [place] coronary artery of [place] heart without angina pectoris I25.10 Active Problem Chronic kidney disease, stage III (moderate) N18.3 Active Problem Essential hypertension I10 Activ e Problem Low vitamin D level E55.9 Active Problem Anemia D64.9 Active Assessment Chronic kidney disease, stage III (moderate) N18.3 Active Assessment 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 Active Problem Hyperlipidemia E78.5 Active Problem Hypertension I10 Active Problem Dry skin L85.3 Active Problem Chronic kidney disease, stage 3 N18.3 Active Medications Medication Code System Code Instructions Start Date End Date Status Dosage Vitamin D3 [facility] [address]-77 2000 UNIT Orally Once a day Active 1 capsule Iron Formula [facility] 42781-06625 Active Unknow n Amlodipine Besylate [facility] [address]-44 10 mg Orally Once a day Active 1 tablet Losartan Potassium [facility] [address]-78 100 mg Orally Once a day Active 1 tablet Alendronate Sodium [facility] [address]-24 35 MG Orally once a week Jun 17, 2016 September 15, 2016 Active 1 tablet Simvastatin [facility] [address]-46 20 mg Orally Once a day Active 1 tablet in the evening ASA Unknown 0 Oral Active 1 tab Humalog [facility] [address]-30 100 Subcutaneous daily Ac tive inject 80 to 85 units Social History Social History Element Qualifiers Date [...] alcohol? . Status: No Jun 17, 2016 Vital Signs Date/Time: Jun 17, 2016 Weight 193.1 lbs Height 72 in Temperature 98.3 F Cardiac Monitoring Heart Rate 64 /min Blood Pressure Diastolic 66 mm Hg Blood Pressure Systolic 111 mm Hg Summary Purpose eClinicalWorks Submission
--- OUTSIDE RECORDS SUMMARY | 2019-10-15 12:52 | XMS REPORT ---
Author Author LEE Jason Organization eClinicalWorks Address Unknown Phone Unavailable Care Team Providers Care Blind Hooker Name Role Phone Huan Jason CP Unavailable Allergies No Known Allergies Problems Problem Type Condition Code Onset Dates Condition Statu s Problem Other and unspecified hyperlipidemia E78.5 Active Problem Essential (primary) hypertension I10 Active Problem Obesity (BMI 30-39.9) E66.9 Active Problem Type 1 diabetes mellitus with diabetic neuropathy E10. 40 Active Medications Medication Code System Code Instructions Start Date End Date Status Dosage Humalog [facility] 94384962227 100 UNIT/ML Subcutaneous once a day Active 100-110 units Results No Known Results Summary Purpose eClinicalWorks Submission
--- OUTSIDE RECORDS SUMMARY | 2019-10-15 12:52 | XMS REPORT ---
Author Author LEE Jason Organization eClinicalWorks Address Unknown Phone Unavailable Care Team Providers Care Technical Solutions Engineer Name Role Phone Huan Jason CP Unavailable [...] Start Date End Date Status Dosage Humalog [facility] 89834983352 100 UNIT/ML Subcutaneous once a day Active 100-110 units Results No Known Results Summary Purpose eClinicalWorks Submission
--- OUTSIDE RECORDS SUMMARY | 2019-10-15 12:52 | XMS REPORT ---
Author Author Mohsen Canseco [facility] eClinicalWorks Address Unknown Phone Unavailable Care Team Providers Care Truck Leasing Manager Name Role Phone Annelise Canseco Unavailable Allergies, Adverse Reactions, Alerts Substance Reaction Event Type N.K.D.A. Info Not Available Non Drug Allergy Encounters Encounter Location Date patient here for his annuuel physical and labs [facility] Pr [facility]ary Care July 18, 2015 patient here for labs work [facility] Primary Care August 25, 2015 test strips called in [facility] September 15, 2015 test strips called in [facility] September 29, 2015 New patient here to [facility] Primary Care May 21, 2015 patient here to follow up on medication [facility] Primary C are Jun 04, 2015 Patient here for a follow up [facility] Jul 04, 2015 flu shot [facility] Feb 13, 2016 Patient here for follow up on medication and diabetes [facility] Primary Care November 19, 2015 patient here to follow up with diabetes [facility] Primary C are Feb 11, 2016 echocardiogram Jairo Lyon MD, [place] Jun 26, 2015 Follow-Up Jairo [place] MD, [place] November 05, 2015 patient here to follow up on diabetes [facility] Primary Car e Apr 29, 2016 Follow-Up Jairo Lyon MD, [place] Jun [...] Date End Date Status Dosage Vitamin D3 [facility] [address]-93 2000 UNIT Orally Once a day Active 1 capsule Iron Formula [facility] 06934-53668 Active Unknow n ASA Unknown 0 Oral Active 1 tab Simvastatin [facility] [address]-08 20 mg Orally Once a day Active 1 tablet in the evening Humalog [facility] [address]-94 100 Subcutaneous daily Ac tive inject 80 to 85 units Losartan Potassium [facility] [address]-72 100 mg Orally Once a day Active 1 tablet Amlodipine Besylate [facility] [address]-88 10 mg Orally Once a day Active 1 tablet Social History Social History Element Qualifiers Date Reported Tobacco Use: . Are you a: never smoker Apr 29, 2016 Use of recreational / street drugs? . Answer: No Apr 29, 2016 Alcohol Screening: . Points: 0, Interpretation: Negative Apr 29, 2016 Do you have pets? . Status: No Apr 29, 2016 Marital Status: . Single Apr 29, 2016 Caffeine intake? . Status: Yes, What type: Coffee, Tea, How often? Daily Apr 29, 2016 New since last visit: none. Apr 29, 2016 Do you exercise? . Answer: Yes, Type: walking, How often ? Weekly Apr 29, 2016 Do you drink alcohol? . Status: No Apr 29, 2016 Vital Signs Date/Time: Apr 29, 2016 Weight 191.4 lbs Height 72 in Temperature 98.1 F Cardiac Monitoring Heart Rate 63 /min Blood Pressure Diastolic 63 mm Hg Blood Pressure Systolic 146 mm Hg Summary Purpose eClinicalWorks Submission
--- OUTSIDE RECORDS SUMMARY | 2019-10-15 12:52 | XMS REPORT ---
Author Mohsen Sifuentes [facility] eClinicalWorks Address Unknown Phone Unavailable Care Team Providers Care Green Building Design Specialist Name Role Phone Annelise Canseco CP Unavailable Allergies, Adverse Reactions, Alerts Substance Reaction Event Type N.K.D.A. Info Not Available Non Drug Allergy Problems Problem Type Condition Code Onset Dates Condition Statu s Assessment Skin lesion L98.9 Active Assessment Osteopenia M85.80 Active Assessment Low vitamin D level E55.9 Active Problem Shortness of breath R06.02 Active Assessment Other specified nutritional anemias D53.8 Active Problem Dyspnea on exertion R06.09 Active Assessment Coronary artery disease invo lving [place] coronary artery of [place] heart without angina pectoris I25.10 Active Problem CAD (coronary artery disease) I25.10 Active Problem Coronary artery disease invo lving [place] coronary artery of [place] heart without angina pectoris I25.10 Active Problem [...] Start Date End Date Status Dosage Humalog [facility] [address]-54 100 Subcutaneous daily Act alejandra inject 80 to 85 units Simvastatin [facility] [address]-96 20 mg Orally Once a day Active 1 tablet in the evening Alendronate Sodium [facility] [address]-14 35 MG Orally once a week Jun 17, 2016 September 15, 2016 Active 1 tablet Vitamin D3 [facility] [address]-09 2000 UNIT Orally Once a day Active 1 capsule Alendronate Sodium [facility] 72625190092 35MG Orally once a week Active 1 tablet Amlodipine Besylate [facility] [address]-25 10 mg Orally Once a day Active 1 tablet ASA NDC 0 Oral Active 1 tab Alendronate Sodium [facility] [address]-87 35 MG Orally once a week Mar 14, 2017 Active 1 tablet Iron Formula [facility] 97562-26984 Active not def ined Losartan Potassium [facility] [address]-60 100 mg Orally Once a day Active 1 tablet Vital Signs Date/Time: September 15, 2016 BMI 26.47 Index Weight 195.2 lbs Height 72 in Temperature 97.2 F Cardiac Monitoring Heart Rate 64 /min Blood Pressure Diastolic 61 mm Hg Blood Pressure Systolic 117 mm Hg Results No Known Results Summary Purpose eClinicalWorks Submission
--- OUTSIDE RECORDS SUMMARY | 2019-10-15 12:52 | XMS REPORT ---
Author Author Mohsen Tucker [facility] eClinicalWorks Address Unknown Phone Unavailable Care Team Providers Care Telecommunicator Name Role Phone Sharonda Tucker Unavailable Allergies, Adverse Reactions, Alerts Substance Reaction Event Type N.K.D.A. Info Not Available Non Drug Allergy Encounters Encounter Location Date patient here for his annuuel physical and labs [facility] [place] [facility] July 18, 2015 patient here for labs work [facility] August 25, 2015 test strips called in [facility] September 15, 2015 test strips called in [facility] September 29, 2015 New patient here to [facility] May 21, 2015 patient here to follow up on medication [facility] Jun 04, 2015 Patient here for a follow up [facility] Jul 04, 2015 flu shot [facility] Feb 13, 2016 Patient here for follow up on medication and diabetes [facility] November 19, 2015 patient here to follow up with diabetes [facility] Feb 11, 2016 [place] [facility] [place] May 06, 2016 echocardiogram [facility] [place] Jun 26, 2015 [place] [facility] [place] [place] November 05, 2015 Patient here to over bone density scan [facility] Jun 17, 2016 [place] [facility] [place] [place] Jun 30, 2015 patient here to follow up on diabetes [facility] Apr 29, 2016 Patient here for annyal physical and labs [facility] Jun 02, 2016 Problems [...] Instructions Start Date End Date Status Dosage Aspirin MEDISPAN 86898-56375 81 MG Orally Once a day Act alejandra 1 tablet Triamterene-HCTZ [facility] [address]-64 37.5-25 MG Orally Once a day Active 1 tablet in the morning Simvastatin [facility] [address]-66 20 MG Orally Once a day Active 1 tablet in the evening ProAir HFA [facility] [address]-22 108 (90 Base) MCG/ACT Inhal ation every 4 hrs Active 2 puffs as needed Humalog [facility] [address]-06 100 UNIT/ML Subcutaneous Active Unknown Losartan Potassium [facility] [address]-47 100 MG Orally Once a day Active 1 tablet Ammonium Lactate [facility] [address]-02 12 % Externally Twice a day Active 1 application to affected area Amlodipine Besylate [facility] [address]-37 10 MG Orally Once a day Active 1 tablet Social History Social History Element Qualifiers Date Reported Tobacco Use: . Are you a: former smoker QUIT TOBACCO 1982 May 06, 2016 Do you drink alcohol? . Status: No May 06, 2016 Vital Signs Date/Time: May 06, 2016 Weight 194 lbs Cardiac Monitoring Heart Rate 72 /min Blood Pressure Diastolic 60 mm Hg Blood Pressure Systolic 145 mm Hg Summary Purpose eClinicalWorks Submission
--- OUTSIDE RECORDS SUMMARY | 2019-10-15 12:52 | XMS REPORT ---
Author Author LEE Jason Organization eClinicalWorks Address Unknown Phone Unavailable Care Team Providers Care Pellet Mill Operator Name Role Phone Huan Jason CP Unavailable Allergies No Known Allergies Problems Problem Type Condition Code Onset Dates Condition Statu s Problem Other and unspecified hyperlipidemia E78.5 Active Problem Essential (primary) hypertension I10 Active Problem Obesity (BMI 30-39.9) E66.9 Active Problem Type 1 diabetes mellitus with diabetic neuropathy E10. 40 Active Medications Medication Code System Code Instructions Start Date End Date Status Dosage Contour Next Test [facility] [id number] - In Vitro ten times a day May 26, 2018 Active as directed Results No Known Results Summary Purpose eClinicalWorks Submission
--- OUTSIDE RECORDS SUMMARY | 2019-10-15 12:52 | XMS REPORT ---
Author Author LEE Jason Organization eClinicalWorks Address Unknown Phone Unavailable Care Team Providers Care Associate Theatre Professor Name Role Phone Huan Jason CP Unavailable Allergies No Known Allergies Problems Problem Type Condition Code Onset Dates Condition Statu s Problem Other and unspecified hyperlipidemia E78.5 Active Problem Essential (primary) hypertension I10 Active Problem Obesity (BMI 30-39.9) E66.9 Active Problem Type 1 diabetes mellitus with diabetic neuropathy E10. 40 Active Medications No Known Medications Results No Known Results Summary Purpose eClinicalWorks Submission
--- OUTSIDE RECORDS SUMMARY | 2019-10-15 12:52 | XMS REPORT ---
Author Author Mohsen Canseco [facility] eClinicalWorks Address Unknown Phone Unavailable Care Team Providers Care Dispatch Supervisor Name Role Phone Annelise Canseco Unavailable Allergies, Adverse Reactions, Alerts Substance Reaction Event Type N.K.D.A. Info Not Available Non Drug Allergy Encounters Encounter Location Date patient here for his annuuel physical and labs [facility] July 18, 2015 patient here for labs work [facility] August 25, 2015 test strips called in [facility] September 15, 2015 test strips called in [facility] September 29, 2015 New patient here to [facility] May 21, 2015 patient here to follow up on medication [facility] Jun 04, 2015 Patient here for a follow up [facility] Jul 04, 2015 flu shot [facility] Feb 13, 2016 Patient here for follow up on medication and diabetes [facility] November 19, 2015 patient here to follow up with diabetes [facility] Feb 11, 2016 [place] [place] November 05, 2015 [place]Up [facility] [place] [place] Jun 30, 2015 echocardiogram [facility] [place] [place] Jun 26, 2015 patient here to follow up on diabetes [facility] Apr 29, 2016 Patient here for annyal physical and labs [facility] Jun 02, 2016 Problems Problem Type Condition ICD-9 Code Onset Dates Condition Statu s Assessment Low vitamin D level E55.9 Active Assessment Other specified nutritional anemias D53.8 Active Problem Hypertension I10 Active Assessment Coronary artery disease invo lving [place] coronary artery of [place] heart without angina pectoris I25.10 Active Problem Fatigue R53.83 Active Assessment Mixed hyperlipidemia E78.2 Active Problem Shortness of breath R06.02 Active Problem CAD (coronary artery disease) I25.10 Active Problem Dyspnea on exertion R06.09 Active Problem 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 Problem Chronic kidney disease, stage III (moderate) N18.3 Active Assessment 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 Active Assessment Chronic kidney disease, stage III (moderate) N18.3 Active Problem 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 Act alejandra Assessment Essential hypertension I10 Activ e Problem Coronary artery disease invo lving [place] coronary artery of [place] heart without angina pectoris I25.10 Active Problem Other specified nutritional anemias D53.8 Active Problem Essential hypertension I10 Activ e Problem Mixed hyperlipidemia E78.2 Active Assessment Annual physical exam Z00.00 Active Problem Low vitamin D level E55.9 Active Assessment 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 Act alejandra Assessment Concern about STD in male without diagnosis Z71.1 Active Problem Chronic kidney disease, stage 3 N18.3 Active Problem Hyperlipidemia E78.5 Active Problem Anemia D64.9 Active Problem Dry skin L85.3 Active Medications Medication Code System Code Instructions Start Date End Date Status Dosage Iron Formula [facility] 33835-00967 Active Unknow n Vitamin D3 [facility] [address]-64 2000 UNIT Orally Once a day Active 1 capsule Amlodipine Besylate [facility] [address]-23 10 mg Orally Once a day Active 1 tablet Humalog [facility] [address]-79 100 Subcutaneous daily Ac tive inject 80 to 85 units ASA Unknown 0 Oral Active 1 tab Simvastatin [facility] [address]-20 20 mg Orally Once a day Active 1 tablet in the evening Losartan Potassium [facility] [address]-73 100 mg Orally Once a day Active 1 tablet Social History Social History Element Qualifiers Date Reported Tobacco Use: . Are you a: former smoker Jun 02, 2016 Use of recreational / street drugs? . Answer: No Jun 02, 2016 Alcohol Screening: . Points: 0, Interpretation: Negative Jun 02, 2016 Do you have pets? . Status: No Jun 02, 2016 Marital Status: . Single Jun 02, 2016 Caffeine intake? . Status: Yes, What type: Coffee, Tea, How often? Daily Jun 02, 2016 New since last visit: none. Jun 02, 2016 Do you exercise? . Answer: Yes, Type: walking, How often ? Weekly Jun 02, 2016 Do you drink alcohol? . Status: No Jun 02, 2016 Family history Qualifier Description Comment Date Reported Maternal Grandmother Comment not available May 162016 Paternal Grandmother Comment not available May 162016 Siblings Comment not available Surjit 18, 20 17 Maternal Grandfather Comment not available May 162016 Children Comment not available Jun 02 Father Comment not available Jun 02 Paternal Grandfather Comment not available May 162016 Mother Comment not available Jun 02 Other: Comment not available Jun 02 Vital Signs Date/Time: Jun 02, 2016 Weight 194.7 lbs Height 72 in Temperature 97.9 F Cardiac Monitoring Heart Rate 64 /min Blood Pressure Diastolic 67 mm Hg Blood Pressure Systolic 105 mm Hg Summary Purpose eClinicalWorks Submission
--- OUTSIDE RECORDS SUMMARY | 2019-10-15 12:52 | XMS REPORT ---
Author Author LEE Jason Organization eClinicalWorks Address Unknown Phone Unavailable Care Team Providers Care Change Control Manager Name Role Phone Huan Jason CP Unavailable Allergies, Adverse Reactions, Alerts Substance Reaction Event Type N.K.D.A. Info Not Available Non Drug Allergy Problems Problem Type Condition Code Onset Dates Condition Statu s Assessment Bilateral impacted cerumen H61.23 A ctive Assessment Essential (primary) hypertension I10 Active Assessment Other and unspecified hyperlipidemia E78.5 Active Assessment Cough R05 Active Assessment Obesity (BMI 30-39.9) E66.9 Active Problem Other and unspecified hyperlipidemia E78.5 Active Problem Essential (primary) hypertension I10 Active Problem Obesity (BMI 30-39.9) E66.9 Active Assessment Encounter for general adult medical examination with abnormal findings Z00.01 Active Assessment Type 1 diabetes mellitus with diabetic neuropathy E10. 40 Active Problem Type 1 diabetes mellitus with diabetic neuropathy E10. 40 Active Medications Medication Code System Code Instructions Start Date End Date Status Dosage Amlodipine 10 mg Tab NDC 0 by mouth once a day Active BENZAPRILE iron NDC 0 Oral once a day Active 65 MG Humalog KwikPen [facility] 54952735414 100 UNIT/ML Subcutaneous once a day Active 100-110 units Aspir-81 ND 31435627017 81 MG Orally Once a day Act alejandra 1 tablet Valsartan-Hydrochlorothiazide ND 47651172403 320-25 MG O rally Once a day May 24, 2018 Active 1 tablet Amlodipine Besy-Benazepril HCl ND 75887480272 10-20 MG Orally Active as directed alendronate 35 mg Tab NDC 0 once a day Activ e not defined Amlodipine Besylate ND 28914668334 10 mg Orally Once a day May 24, 2018 Active 1 tablet Simvastatin 20 mg Tab NDC 0 once a day Activ e not defined Omeprazole ND 90536414123 40 mg Orally twice a day (bid) Active 1 capsule losartan 100 mg tablet NDC 0 once a day Acti ve not defined Vital Signs Date/Time: May 24, 2018 BMI 32.09 Index Weight 202.5 lbs Height 66.6 in Temperature 96.5 F Cardiac Monitoring Heart Rate 66 /min Blood Pressure Diastolic 67 mm Hg Blood Pressure Systolic 151 mm Hg Results No Known Results Summary Purpose eClinicalWorks Submission
[2019-10-15] MEDS ORDERED: TETANUS/DIPHTHERIA TOX ADULT 0.5 ML SYR IM ONE (13:15)
--- NOTE | 2019-10-15 14:07 | Diagnostic Imaging Report ---
EXAM: HAND 3+ VIEWS LEFT DATE: 10/15/2019 1:47 PM INDICATION: Fall, thumb laceration COMPARISON: None FINDINGS: There is no evidence for acute fracture or dislocation. No focal lytic or blastic abnormality is identified. Scattered degenerative changes noted. The surrounding soft tissues are unremarkable without evidence for radiopaque foreign body. IMPRESSION: No acute radiographic abnormality identified within the left hand. Signed by: Dr. Mario Ball MD on 10/15/2019 2:03 PM
[2019-10-15] MEDS ORDERED: AUGMENTIN 875-1 EACH PO (14:08)
--- NOTE | 2019-10-15 14:28 | Emergency Department Note ---
History of Present Illnes History of Present Illness Chief Complaint: Laceration History of Present Illness This is a 84 year old male arrived to the ED with complaints of left t humb pain/bleeding. Pt had a fall last night and thought wound would heal but it continued to bleed which prompted him to come to the ED. Chief Complaint Comment PATIENT IN FROM HOME WITH COMPLAINTS OF TRIP AND FALL WHILE LOOKING FOR THE LIGHT SWITCH; DENIES LOC. PATIENT PRESENTS WITH A SMALL LAC TO LEFT THUMB Historian: Patient Arrival Mode: Car Duration (how long): day(s) Timing of current episode: intermittent Progression: waxing and waning Relieving factors: none Exacerbating factors: none Past Medical/Family History Physician Review I have reviewed the patient's past medical and family history. Any updates have been documented here. Past Medical History Recent Fever: No Clinical Suspicion of Infectio: No New/Unexplained Change in Ment: No Past Medical History: Hypertension, Diabetes, Hyperlipedemia Other Surgery: TURP LEFT FOOT SURGERY Social History Smoking Cessation: Never Smoker Counseling Performed: No Alcohol Use: None Any Illegal Drug Use: No TB Exposure/Symptoms: No Physically hurt or threatened: No Family History Family history of heart diseas: No Other Last Tetanus: UNKNOWN Any Pre-Existing Lines (PICC,: No Is patient up to date on immun: Yes Last Flu: UTD Last Pneumovax: UTD Review of Systems Review of Systems Constitutional: no symptoms EENTM: no symptoms Cardiovascular: no symptoms Respiratory: no symptoms Gastrointestinal: no symptoms Genitourinary: no symptoms Musculoskeletal: as per HPI, other (skin laceration) Neurological: no symptoms Psychological: no symptoms Endocrine: no symptoms Hematological/Lymphatic: no symptoms Review of other systems All other systems reviewed and negative. Physical Exam Related Data Allergies: Coded Allergies: No Known Allergies (Unverified , 10/15/19) Triage Vital Signs Vital Signs Date Time Temp Pulse Resp B/P (MAP) Pulse Ox O2 Delivery O2 Flow Rate FiO2 10/15/19 12:56 98.3 75 18 155/85 96 Vital signs reviewed: Yes Physical Exam CONSTITUTIONAL Constitutional: well-developed, well-nourished HENT HENT: normocephalic, atraumatic, oropharynx clear/moist, nose normal HENT L/R: left ext ear normal, right ext ear normal EYES Eyes: PERRL, conjunctivae normal NECK Neck: ROM normal PULMONARY Pulmonary: effort normal, breath sounds normal CARDIOVASCULAR Cardiovascular: regular rhythm, heart sounds normal, capillary refill normal, normal rate GASTROINTESTINAL Abdominal: soft, nontender, bowel sounds normal GENITOURINARY Genitourinary: exam deferred SKIN Skin: warm, dry, other (superficial jagged laceration noted over base of thumb, palmar aspect) MUSCULOSKELETAL Musculoskeletal: ROM normal NEUROLOGICAL Neurological: alert, oriented x 3, no gross motor or sensory deficits PSYCHOLOGICAL Psychological: mood/affect normal, judgement normal Critical Care Time Subsequent provider I assumed direction of critical care for this patient from another provider of my specialty. Assessment & Plan Assessment & Plan Final Impression: (1) Skin laceration Assessment & Plan wound > 6 hrs tetanus up to date wound irrigated and dermabonded Last Vital Signs Date Time Temp Pulse Resp B/P (MAP) Pulse Ox O2 Delivery O2 Flow Rate FiO2 10/15/19 12:56 98.3 75 18 155/85 96 Home Meds Active Scripts Amoxicillin/Potassium Clav (AUGMENTIN 875-125 TABLET) 1 Each Tablet, 875 MG PO DAILY, #10 TAB Prov:CONSTANTINO TAVERAS DO 10/15/19 Medications in the ED Tetanus/ Diphtheria Toxoids 0.5 ml ONCE ONCE IM Last administered on 10/15/19at 13:25; Admin Dose 0.5 ML; Start 10/15/19 at 13:15; Stop 10/15/19 at 13:16 CONSTANTINO TAVERAS DO Oct 15, 2019 14:45
[2019-10-15 14:55] VITALS: BP 158/66
== END 2019-10-15 14:56 | disposition home or self-care (01) ==
LOC: ER 12:48
DX: S61.012A Laceration without foreign body of left thumb without damage to nail, initial encounter (principal); W01.0XXA Fall on same level from slipping, tripping and stumbling without subsequent striking against object, initial encounter; I10 Essential (primary) hypertension; E11.9 Type 2 diabetes mellitus without complications; E78.5 Hyperlipidemia, unspecified
CPT/HCPCS: 90471; 90714; 99284

== ENCOUNTER → 2019-11-01 | Outpatient (CLI) | payer OTHER ==
[~2019-11-01] MED LIST: AUGMENTIN 875-1 EACH PO
--- NOTE | 2019-11-05 10:38 | Diagnostic Imaging Report ---
Exam: Bone mineral density study. History: Osteopenia. Comparison: None Discussion: Evaluation of the left hip and lumbar spine was performed utilizing DEXA Hologic bone densitometer. The study is technically adequate. Left hip total bone mineral density: 0.967gm/cm2, T-score is -0.4, Z-score is 0.7. Left hip femoral neck bone mineral density: 0.770gm/cm2, T-score is -1.2, Z-score is 0.4. Lumbar spine total bone mineral density:1.095gm/cm2, T-score is0, Z-score is 1.3. Impression: 1. Osteopenia of the left hip, fracture risk is increased 2. Normal bone mineral density of the lumbar spine, fracture risk is not increased. Least significant change (LSC) for bone mineral density as provided by cna per diem is 0.023 g/cm2 for lumbar spine and 0.027 g/cm2 for total hip. 10 -year fracture risk per WHO Fracture Risk Assessment Tool (FRAX) for: Not reported because patient treated for osteoporosis The patient's fracture risk is compared to an age-matched control. Medical evaluation for secondary causes of low bone bone mineral density may be appropriate. Correlate clinically for the necessity and timing of the next bone mineral density study. Signed by: Dr. Raymundo Iraheta M.D. on 11/05/2019 10:34 AM
== END ==
LOC: DX 12:15
PROVIDERS: ATTEND Internal Medicine Endocrinology, Diabetes & Metabolism
DX: M81.0 Age-related osteoporosis without current pathological fracture (principal)
CPT/HCPCS: 77080

== ENCOUNTER 2020-03-24 11:05 | Emergency (ER) | payer OTHER ==
[~2020-03-24] VITALS: Ht 177.8 cm; Wt 90.7 kg
[2020-03-24 11:53] VITALS: BP 190/82
--- OUTSIDE RECORDS SUMMARY | 2020-03-24 12:01 | XMS REPORT | Continuity of Care Document ---
Author Author LEE Saldaña Delta ID Information Rod[place] Address Unknown Phone Unavailable Care Team Providers Care Conventions Assistant Name Role Phone Delta ID Information Exchange Unavailable Un available Problems Problem Status Onset Date Classification Date Reported Comments Source M81.0 Active 06/02/2016 [facility] UNK Active 0 06/11/2015 [facility] R06.02 Active 06/04/2015 [facility] Hypertensive heart disease without heart failure Active Problem 05/31/2019 Jairo Lyon MD, P A Pure hypercholesterolemia Acti ve Problem Jairo Lyon MD, PA CAD without angina Active Problem 05/31/2019 Jairo Lyon MD, PA Bruit Active Problem 05/31/2019 Jairo Lyon MD, PA Osteopenia Active Problem 02/28/2018 [facility] Low vitamin D level Active Problem 02/28/2018 [facility] Shortness of breath Active Problem 02/28/2018 [facility] Other specified nutritional anemias Active Problem [facility] Dyspnea on exertion Active Problem 02/28/2018 [facility] Coronary artery disease involving [place] coronary artery of [place] heart without angina pectoris Active Problem 02/28/2018 [facility] CAD (coronary artery disease) Active Problem [facility] Age related osteoporosis Active Problem 02/28/2018 [facility] Type 1 diabetes mellitus with diabetic c hronic kidney disease Active Prob miya 02/28/2018 [facility] Chronic kidney disease, stage III (moderate) Active Problem 02/28/2018 [facility] Skin lesion Active Problem 02/28/2018 [facility] Mixed hyperlipidemia Active Problem 02/28/2018 [facility] Essential hypertension Active Problem 02/28/2018 [facility] Anemia Active Problem 02/28/2018 [facility] Dry skin Active Problem 02/28/2018 [facility] Hypertension Active Problem 02/28/2018 [facility] Fatigue Active Problem 02/28/2018 [facility] Chronic kidney disease, stage 3 Active Problem [facility] Hyperlipidemia Active Problem 02/28/2018 [facility] Upper respiratory tract infection, unspecified type Active Diagnosis 04/14/2017 [facility] Onychomycosis Active Problem 02/28/2018 [facility] Gastroesophageal reflux disease without esophagitis Active Problem 02/28/2018 [facility] Type 2 diabetes mellitus with hyperglycemia Active Problem 04/30/2016 [facility] Type 2 diabetes mellitus with other diab etic kidney complication Active Prob miya 04/30/2016 [facility] Concern about STD in male without diagnosis Active Diagnosis 06/03/2016 [facility] Coronary arteriosclerosis (disorder) Resolved Problem [facility] Cataract (disorder) Resolved Problem 06/07/2016 [facility] Diabetes mellitus (disorder) R esolved Problem [facility] Hypercholesterolemia (disorder) Resolved Problem [facility] Hypertensive disorder, systemic arterial (disorder) Resolved Problem 06/07/2016 [facility] Other and unspecified hyperlipidemia Active Problem [id number] 2568 Essential (primary) hypertension Active Problem [id number] 2568 Obesity (BMI 30-39.9) Active Problem 07/29/2018 [id number] 2568 Type 1 diabetes mellitus with diabetic neuropathy Active Problem 07/29/2018 [id number] Encounter for general adult medical exam ination with abnormal findings Active Diag nosis 07/18/2018 [id number] Bilateral impacted cerumen Act alejandra Diagnosis 0 06/01/2018 [id number] 2568 Cough Active Diagnosis 06/01/2018 [id number] SHORTNESS OF BREATH Active [facility] AGE-RELATED OSTEOPOROSIS W/O CURRENT PAT Active [facility] Medications Medication Details Route Status Patient Instructions Ordering Provider Order Date Source alendronate 35 mg Tab 1 tablet orally Active orally ONCE A WEEK Eren 12/19/2018 [id number] Humalog inject 140 units Subcutaneous Active 100 UNIT/ML Subcutaneous refill for pump Eren 06/21/2018 [id number] Contour Next Test as directed In Vitro Active - In Vitro ten times a day Eren 05/26/2018 [id number] Amlodipine Besylate 1 tablet Orally Active 10 mg Orally Once a day Eren 05/24/2018 [id number] Valsartan-Hydrochlorothiazide 1 tablet Orally Active 320-25 MG Orally Once a day Eren 05/24/2018 [id number] Omeprazole 1 capsule Orally Active 40 mg Orally Once a day Ajith 02/22/2018 [facility] NovoLog inject 90-100 units Subcutaneous Active 100 UNIT/ML Subcutaneous daily Ajith 11/23/[address] [facility] Alendronate Sodium 1 tablet Orally Active 35 MG Orally once a week Ajith 08/16/2017 [facility] Azithromycin 2 tablets on the first day, then 1 tablet daily for 4 days Orally Active 250 MG Orally Once a day Ajith 04/13/2017 [facility] PredniSONE 1 tablet Orally Active 10 mg Orally Once a day Ajith 04/13/2017 [facility] Levocetirizine Dihydrochloride 1 tablet in the evening Orally Active 5 MG Orally Once a day Ajith 04/13/2017 [facility] Benzonatate 1 capsule Orally Active 200 MG Orally Three dona es a day as needed Ajith 04/13/2017 [facility] Alendronate Sodium 1 tablet Orally Active 35 MG Orally once a week Ajith 03/14/2017 [facility] Alendronate Sodium 1 tablet Orally Active 35 MG Orally once a week Ajith 06/17/[address] [facility] Sodium Chloride 0.154 MEQ/ML Injectable Solution 300 mL, Rate: 100 ml/hr, Infuse over: 3 hr, Route: IV, Dosing Weight 86.364 kg, Total Volume: 300, Start date: 06/17/15 13:12:00, Duration: 24 hr, Stop date: 06/18/15 13:11:00 Inactive 06/17/2015 [facility] Morphine Notes: (Same as:MORPh ine Sulfate) Inactive 06/17/2015 [facility] Ondansetron Notes: (Same as: Sharla hathaway) MEDICATION WASTE Product Size: 4 mg Product Wasted: ___ mg Inactive 06/17/2015 [facility] Acetaminophen Notes: Do not ex ceed 4 gm/day. (Same as: Tylenol) Inactive 06/17/2015 [facility] normal saline 0.9% IV 1,000 mL 1,000 mL, Rate: 100 ml/hr, Infuse over: 10 hr, Route: IV, Dosing Weight 86.364 kg, Total Volume: 1,000, Start date: 06/17/15 9:41:00, Duration: 30 day, Stop date: 07/17/15 9:40:00 Inactive 06/17/2015 [facility] Iron 100 Plus 1 tab, PO, Daily , 0 Refill(s) Active 06/16/2015 [facility] Vitamin D3 5000 intl units oral tablet 5,000 IntlUnit = 1 tab, PO, Daily, 0 Refill(s) Active 06/16/2015 [facility] Aspirin 81 MG Enteric Coated Tablet 81 mg = 1 tab, PO, Daily, # 90 tab, 3 Refill(s) Active 06/16/2015 [facility] Hydrochlorothiazide 25 MG / Triamterene 37.5 MG Oral Capsule 1 cap, PO, Daily, 0 Refill(s) No Longer Active 06/16/2015 [facility] simvastatin 20 mg oral tablet 20 mg = 1 tab, PO, Bedtime, 0 Refill(s) Active 06/16/2015 [facility] losartan 100 mg oral tablet 10 0 mg = 1 tab, PO, Daily, 0 Refill(s) Active 06/16/2015 [facility] Amlodipine 10 mg, PO, Daily, 0 Refill(s) Active 06/16/2015 [facility] Humalog SUB-Q, pump, 0 Refill( s) Active 06/16/2015 [facility] ProAir HFA 2 puffs as needed Inhalation No Longer Active 108 (90 Base) MCG/ACT Inhalation every 4-6 hrs as needed Ajith06/04/[address] [facility] Ammonium Lactate 1 application to affected area Externally Active 12 % Externally Twice a day Qa 05/21/[address] [facility] Simvastatin 1 tablet in the ev ening Orally Active 20 mg Orally Once a day [facility],Jairo Lyon MD, [place] Triamterene-HCTZ 1 tablet in t he morning Orally Active 37.5-25 MG Orally Once a day Garrett Lyon MD, PA Losartan Potassium 1 tablet Orally Active 100 MG Orally Once a day [facility] Aspirin 1 tablet Orally Active 81 MG Orally Once a day Garrett Lyon MD, PA ProAir HFA 2 puffs as needed Inhalation Active 108 (90 Base) MCG/ACT Inhalation every 4 hrs Garrett Lyon MD, PA Amlodipine Besylate 1 tablet Orally Active 10 mg Orally Once a day [facility] Ammonium Lactate 1 application to affected area Externally Active 12 % Externally Twice a day Bne Lyon MD, PA Humalog not defined Subcutaneous Active 100 UNIT/ML Subcutaneou s [facility] MD, PAULETTE Vitamin D3 1 capsule Orally Active 2000 UNIT Orally Once a day [facility] Losartan Potassium 1 tablet Orally Active 100 mg Orally Once a day [facility] Amlodipine Besylate 1 tablet Orally Active 10 mg Orally Once a day [facility] ASA 1 tab Or al Active Oral [facility] Alendronate Sodium 1 tablet Orally Active 35MG Orally once a week [facility] Iron Formula not defined NA Active [facility] Simvastatin 1 tablet in the ev ening Orally Active 20 mg Orally Once a day [facility] Alendronate Sodium 1 tablet Orally Active 35 MG Orally once a week [facility] Humalog inject 80 to 85 units Subcutaneous Active 100 Subcutaneous daily [facility] Vitamin D3 1 capsule Orally Active 2000 UNIT Orally Once a day [facility] Primary Alendronate Sodium 1 tablet Orally Active 35 MG Orally once a week [facility] Iron Formula not defined NA Active [facility] r [facility] Ammonium Lactate 1 application to affected area Externally Active 12 % Externally Twice a day Ben Lyon MD, PA Triamterene-HCTZ 1 tablet in t he morning Orally Active 37.5-25 MG Orally Once a day [facility] Humalog Unknown Subcutaneous Active 100 UNIT/ML Subcutaneou s [facility]Ad[facility]ulaJ[facility], PAULETTE Aspirin 1 tablet Orally Active 81 MG Orally Once a day Garrett Lyon MD, PAULETTE ProAir HFA 2 puffs as needed Inhalation Active 108 (90 Base) MCG/ACT Inhalation every 4 hrs Garrett Lyon MD, PAULETTE Vitamin D3 Unknown NA Active [facility] ASA 1 tab Or al Active Oral [facility] Valsartan-Hydrochlorothiazide 1 tablet Orally Active 320-12.5 MG Orally Once a day Garrett Lyon MD, PAULETTE Alendronate Sodium 1 tablet Orally Active 35 MG Orally Garrett Lyon MD, PAULETTE Humalog KwikPen 100-110 units Subcutaneous Active 100 UNIT/ML Subcutaneous once a day Eren .661494.4 Simvastatin 20 mg Tab 1 tablet orally Active 20 mg orally once a day Eren .1.555130.4391 Amlodipine 10 mg Tab BENZAPRILE by mouth Active by mouth once a day Eren .1.944691.4391 iron 65 MG O ral Active Oral once a day Eren .1.740091.4391 Aspir-81 1 tablet Orally Active 81 MG Orally Once a day Eren .1.465377.4 Amlodipine Besy-Benazepril HCl as directed Orally Active 10-20 MG Orally Eren .1.666553.4.391 alendronate 35 mg Tab not defi anila NA Active on ce a day Eren 07.01.830.1.662259.4.391 Simvastatin 20 mg Tab not defi anila NA Active on ce a day Eren .1.997251.4 Omeprazole 1 capsule Orally Active 40 mg Orally twice a da y (bid) Eren [id number] losartan 100 mg tablet not def ined NA Active on ce a day Eren [id number] Allergies, Adverse Reactions, Alerts Substance Category Reaction Severity Reaction type Status Date Reported Comments Source N.K.D.A. Adverse Reaction Info Not Available Adverse Reaction 05/30/2019 Jairo Lyon MD, PA Immunizations Immunization Date Given Site Status Last Updated Comments Source FLU SHOT 3 & UP 02/27/2018 completed [facility] Primary FLU SHOT 3 & UP 02/13/[address] [facility] Results Order Name Results Value Reference Range Date Interpretation Comments Source ELECTROLYTES AGAP 11.4 10.0 - 20.0 06/16/2015 [facility] ELECTROLYTES Glucose Lvl 175 70 - 99 06/16/2015 [facility] ELECTROLYTES BUN 31 7 - 22 06/16/2015 [facility] ELECTROLYTES Sodium Lvl 135 135 - 145 06/16/2015 [facility] ELECTROLYTES CO2 28 24 - 32 06/16/2015 [facility] ELECTROLYTES Chloride Lvl 100 95 - 109 06/16/2015 [facility] ELECTROLYTES Potassium Lvl 4.4 3.5 - 5.1 06/16/2015 [facility] ELECTROLYTES Calcium Lvl 8.9 8.5 - 10.5 06/16/2015 [facility] ELECTROLYTES eGFR 44 06/16/2015 Result Comment: The [...] should be multiplied by the estimated BMI. [facility] ELECTROLYTES Creatinine Lvl 1.5 1 0.50 - 1.40 06/16/2015 [facility] HEMATOLOGY PTT 28.4 22.9 - 35.8 06/16/2015 [facility] HEMATOLOGY PT 14.4 12.0 - 14.7 06/16/2015 [facility] HEMATOLOGY INR 1.09 0.85 - 1.17 06/16/2015 [facility] HEMATOLOGY Hct 39.8 42.0 - 54.0 06/16/2015 [facility] HEMATOLOGY Hgb 13.4 14.0 - 18.0 06/16/2015 [facility] HEMATOLOGY Platelet 201 133 - 450 06/16/2015 [facility] Pathology Reports No Data Provided for This Section Diagnostic Reports Report Value Date Source Bone Density Scan BONE DENSITY : HISTORY: Osteoporosis. TECHNIQUE: Dual energy x-ray absorptiometry (DEXA) was done over the lumbar spine and left hip on a emaze Discovery SL scanner. FINDINGS: The total T-score [...] standard deviations (T-score) below peak bone mass. [id number] 06/04/2016 [facility] Chest 2 views DX PA and latera l chest: The cardiomediastinal silhouette, pulmonary vasculature and joanie are within normal limits. The lungs and pleural spaces are clear. There are no significant osseous abnormalities. There is no significant change compared to 09/26/2013. IMPRESSION: No acute radiographic abnormality in the chest. SL:13 06/04/2015 [facility] Consultation Notes No Data Provided for This [...] Jairo Lyon MD, PA Weight 202.5 05/24/2018 [id number] 2568 Height 66.6 05/24/2018 2.16.840.1.512709.4.391.11.2 2568 Temperature Oral (F) 96.5 F 05/24/2018 [id number] Heart Rate 66 05/24/2018 2.16.840.1.988834.4.391.11.2 2568 Diastolic (mm Hg) 67 05/24/2018 [id number] Systolic (mm Hg) 151 05/24/2018 [id number] Weight 195 05/03/2018 Jairo Lyon MD, PA Heart Rate 70 05/03/2018 Jairo Lyon MD, PA Diastolic (mm Hg) 72 05/03/2018 Jairo Lyon MD, PA Systolic (mm Hg) 119 05/03/2018 Jairo Lyon MD, PA Weight 190.0 02/27/2018 [facility] Height 72 1 [facility] Temperature Oral (F) 97.7 F 02/27/2018 [facility] Heart Rate 88 02/27/2018 [facility] Diastolic (mm Hg) 77 02/27/2018 [facility] Systolic (mm Hg) 127 02/27/2018 [facility] Weight 189.1 02/22/2018 [facility] Height 72 1 [facility] Temperature Oral (F) 98.0 F 02/22/2018 [facility] Heart Rate 80 02/22/2018 [facility] Diastolic (mm Hg) 60 02/22/2018 [facility] Systolic (mm Hg) 143 02/22/2018 [facility] Weight 192.1 11/23/2017 [facility] Height 72 0 11/23/2017 [facility] Temperature Oral (F) 98.3 F 11/23/2017 [facility] Heart Rate 84 11/23/2017 [facility] Diastolic (mm Hg) 66 11/23/2017 [facility] Systolic (mm Hg) 180 11/23/2017 [facility] Weight 192.4 08/25/2017 [facility] Height 72 0 08/25/2017 [facility] Temperature Oral (F) 98.1 F 08/25/2017 [facility] Heart Rate 70 08/25/2017 [facility] Diastolic (mm Hg) 67 08/25/2017 [facility] Systolic (mm Hg) 151 08/25/2017 [facility] Weight 196.1 05/26/2017 [facility] Height 72 0 05/26/2017 [facility] Temperature Oral (F) 98.5 F 05/26/2017 [facility] Heart Rate 77 05/26/2017 [facility] Diastolic (mm Hg) 79 05/26/2017 [facility] Systolic (mm Hg) 121 05/26/2017 [facility] Weight 195 05/02/2017 Jairo Lyon MD, PA Heart Rate 79 05/02/2017 Jairo Lyon MD, PA Diastolic (mm Hg) 62 05/02/2017 Jairo Lyon MD, PA Systolic (mm Hg) 140 05/02/2017 Jairo Lyon MD, PA Weight 195.5 04/13/2017 [facility] Height 72 1 06/13/2016 [facility] Temperature Oral (F) 97.9 F 04/13/2017 [facility] Heart Rate 88 04/13/2017 [facility] Diastolic (mm Hg) 74 04/13/2017 [facility] Systolic (mm Hg) 124 04/13/2017 [facility] Weight 197.7 02/17/2017 [facility] Height 72 1 [facility] Temperature Oral (F) 97.0 F 02/17/2017 [facility] Heart Rate 64 02/17/2017 [facility] Diastolic (mm Hg) 67 02/17/2017 [facility] Systolic (mm Hg) 132 02/17/2017 [facility] Weight 193.6 12/16/2016 [facility] Height 72 0 12/16/2016 [facility] Temperature Oral (F) 98.1 F 12/16/2016 [facility] Heart Rate 55 12/16/2016 [facility] Diastolic (mm Hg) 78 12/16/2016 [facility] Systolic (mm Hg) 147 12/16/2016 [facility] Weight 195.2 09/15/2016 [facility] Height 72 0 09/15/2016 [facility] Temperature Oral (F) 97.2 F 09/15/2016 [facility] Heart Rate 64 09/15/2016 [facility] Diastolic (mm Hg) 61 09/15/2016 [facility] Systolic (mm Hg) 117 09/15/2016 [facility] Weight 193.1 06/17/2016 [facility] Height 72 0 06/17/2016 [facility] Temperature Oral (F) 98.3 F 06/17/2016 [facility] Heart Rate 64 06/17/2016 [facility] Diastolic (mm Hg) 66 06/17/2016 [facility] Systolic (mm Hg) 111 06/17/2016 [facility] Weight 194.7 06/02/2016 [facility] Height 72 0 06/02/2016 [facility] Temperature Oral (F) 97.9 F 06/02/2016 [facility] Heart Rate 64 06/02/2016 [facility] Diastolic (mm Hg) 67 06/02/2016 [facility] Systolic (mm Hg) 105 06/02/2016 [facility] Weight 194 05/06/2016 Jairo Lyon MD, PA Heart Rate 72 05/06/2016 Jairo Lyon MD, PA Diastolic (mm Hg) 60 05/06/2016 Jairo Lyon MD, PA Systolic (mm Hg) 145 05/06/2016 Jairo Lyon MD, PA Weight 191.4 04/29/2016 [facility] Height 72 1 06/30/2015 [facility] Temperature Oral (F) 98.1 F 04/29/2016 [facility] Heart Rate 63 04/29/2016 [facility] Diastolic (mm Hg) 63 04/29/2016 [facility] Systolic (mm Hg) 146 04/29/2016 [facility] Weight 192.7 02/13/2016 [facility] Height 72 0 02/13/2016 [facility] Temperature Oral (F) 97.9 F 02/13/2016 [facility] Heart Rate 61 02/13/2016 [facility] Diastolic (mm Hg) 66 02/13/2016 [facility] Systolic (mm Hg) 133 02/13/2016 [facility] Weight 192.6 02/11/2016 [facility] Height 72 0 02/11/2016 [facility] Temperature Oral (F) 98.1 F 02/11/2016 [facility] Heart Rate 61 02/11/2016 [facility] Diastolic (mm Hg) 68 02/11/2016 [facility] Systolic (mm Hg) 152 02/11/2016 [facility] Weight 191.8 11/19/2015 [facility] Height 72 0 11/19/2015 [facility] Temperature Oral (F) 97.9 F 11/19/2015 [facility] Heart Rate 65 11/19/2015 [facility] Diastolic (mm Hg) 56 11/19/2015 [facility] Systolic (mm Hg) 130 11/19/2015 [facility] Weight 195 11/05/2015 Jairo Lyon MD, PA Heart Rate 79 11/05/2015 Jairo Lyon MD, PA Diastolic (mm Hg) 79 11/05/2015 Jairo Lyon MD, PA Systolic (mm Hg) 125 11/05/2015 Jairo Lyon MD, PA Weight 191.6 08/25/2015 [facility] Height 72 0 08/25/2015 [facility] Temperature Oral (F) 98.6 F 08/25/2015 [facility] Heart Rate 69 08/25/2015 [facility] Diastolic (mm Hg) 67 08/25/2015 [facility] Systolic (mm Hg) 126 08/25/2015 [facility] Weight 190.8 07/18/2015 [facility] Height 72 0 07/18/2015 [facility] Temperature Oral (F) 98.6 F 07/18/2015 [facility] Heart Rate 79 07/18/2015 [facility] Diastolic (mm Hg) 66 07/18/2015 [facility] Systolic (mm Hg) 142 07/18/2015 [facility] Weight 189.5 07/04/2015 [facility] Height 72 0 07/04/2015 [facility] Temperature Oral (F) 98.6 F 07/04/2015 [facility] Heart Rate 77 07/04/2015 [facility] Diastolic (mm Hg) 71 07/04/2015 [facility] Systolic (mm Hg) 132 07/04/2015 [facility] Weight 190 06/30/2015 Jairo Lyon MD, [place] Heart Rate 65 06/30/2015 Jairo Lyon MD, [facility] Diastolic (mm Hg) 60 06/30/2015 Jairo Lyon MD, [facility] Systolic (mm Hg) 125 06/30/2015 Jairo Lyon MD, PA Heart Rate 72 06/17/2015 [facility] Systolic (mm Hg) 126 06/17/2015 [facility] Diastolic (mm Hg) 60 06/17/2015 [facility] Respitory Rate 18 06/17/2015 [facility] Temperature Oral (F) 97.4 F 06/16/2015 [facility] Systolic (mm Hg) 115 06/16/2015 [facility] Diastolic (mm Hg) 61 06/16/2015 [facility] Heart Rate 64 06/16/2015 [facility] Weight 86.364 06/16/2015 [facility] BMI Calculated 27.32 06/16/2015 [facility] Height 177.8 cm 06/16/2015 [facility] Weight 189.6 06/04/2015 [facility] Height 72 0 06/04/2015 [facility] Temperature Oral (F) 98.6 F 06/04/2015 [facility] Heart Rate 74 06/04/2015 [facility] Diastolic (mm Hg) 66 06/04/2015 [facility] Systolic (mm Hg) 114 06/04/2015 [facility] Weight 190.8 05/21/2015 [facility] Height 72 0 05/21/2015 [facility] Temperature Oral (F) 98.5 F 05/21/2015 [facility] Heart Rate 66 05/21/2015 [facility] Diastolic (mm Hg) 64 05/21/2015 [facility] Systolic (mm Hg) 124 05/21/2015 [facility] Encounters Location Location Details Encounter Type Encounter Number Reason For Visit Attending Provider ADM Date DC Date Status Source [facility] [place] [facility] [id number] 05/21/2015 05/21/2015 Jairo Lyon MD, PA [facility] [id number] 05/21/2015 05/21/2015 [facility] [id number] 05/21/2015 05/21/2015 [facility] New patient here to est care [id number] 05/21/2015 05/21/2015 [facility] New patient here to est care [id number] 05/21/2015 05/21/2015 [facility] New patient here to est care [id number] 05/21/2015 05/21/2015 Jairo Lyon MD, PA [facility] New patient here to est care [id number] 05/21/2015 05/21/2015 [facility] New patient here to est care [id number] 05/21/2015 05/21/2015 [facility] New patient here to est care [id number] 05/21/2015 05/21/2015 Jairo Lyon MD, [facility] New patient here to est care [id number] 05/21/2015 05/21/2015 [facility] New patient here to est care [id number] 05/21/2015 05/21/2015 [facility] New patient here to est care [id number] 05/21/2015 05/21/2015 [facility] New patient here to est care [id number] 05/21/2015 05/21/2015 [facility] New patient here to est care [id number] 05/21/2015 05/21/2015 [facility] New patient here to est care [id number] 05/21/2015 05/21/2015 [facility] New patient here to est care [id number] 05/21/2015 05/21/2015 [facility] New patient here to est care [id number] 05/21/2015 05/21/2015 Jairo Lyon MD, PA [facility] Care patient here to follow up on medication [id number] 06/04/2015 06/04/2015 Jairo Lyon MD, PA [facility] Care patient here to follow up on medication [id number] 06/04/2015 06/04/2015 [facility] patient here to follow up on medication [id number] 06/04/2015 06/04/2015 [facility] patient here to follow up on medication [id number] 06/04/2015 06/04/2015 [facility] patient here to follow up on medication [id number] 06/04/2015 06/04/2015 [facility] patient here to follow up on medication [id number] 06/04/2015 06/04/2015 Jairo Lyon MD, PA [facility] Care patient here to follow up on medication [id number] 06/04/2015 06/04/2015 [facility] patient here to follow up on medication [id number] 06/04/2015 06/04/2015 [facility] patient here to follow up on medication [id number] 06/04/2015 06/04/2015 Jairo Lyon MD, PA [facility] Care patient here to follow up on medication [id number] 06/04/2015 06/04/2015 [facility] patient here to follow up on medication [id number] 06/04/2015 06/04/2015 [facility] patient here to follow up on medication [id number] 06/04/2015 06/04/2015 [facility] patient here to follow up on medication [id number] 06/04/2015 06/04/2015 [facility] patient here to follow up on medication [id number] 06/04/2015 06/04/2015 [facility] patient here to follow up on medication [id number] 06/04/2015 06/04/2015 [facility] patient here to follow up on medication [id number] 06/04/2015 06/04/2015 Jairo Lyon MD, PA [facility] Outpatient [id number] Annelise Schumachermar 06/04/2015 06/05/2015 [facility] [place] [facility] [id number] Sharonda Tucker 06/17/2015 06/17/2015 [facility] Jairo Lyon MD, PA echocardiogram [id number] 06/26/2015 06/26/2015 Jairo Lyon MD, [place] Jairo Lyon MD, [place] echocardiogram [id number] 06/26/2015 06/26/[address] [facility] Jairo Lyon MD, [place] echocardiogram [id number] 06/26/2015 06/26/[address] [facility] Jairo Lyon MD, PA echocardiogram [id number] 06/26/2015 06/26/[address] [facility] Jairo Lyon MD, PA echocardiogram [id number] 06/26/2015 06/26/[address] [facility] Jairo Lyon MD, PA echocardiogram [id number] 06/26/2015 06/26/2015 Jairo Lyon MD, [place] Jairo Lyon MD, PA echocardiogram [id number] 06/26/2015 06/26/[address] [facility] Jairo Lyon MD, PA echocardiogram [id number] 06/26/2015 06/26/2015 [facility] Jairo Lyon MD, PA echocardiogram [id number] 06/26/2015 06/26/2015 [facility] Jairo Lyon MD, [place] echocardiogram [id number] 06/26/2015 06/26/2015 [facility] Jairo Lyon MD, PA echocardiogram [id number] 06/26/2015 06/26/[address] [facility] Jairo Lyon MD, PA echocardiogram [id number] 06/26/2015 06/26/2015 Jairo Lyon MD, PA Jairo Lyon MD, PA Follow-Up [id number] 06/30/19 16 06/30/2015 Jairo Lyon MD, [facility] Jairo Lyon MD, PA Follow-Up [id number] 06/30/19 16 06/30/[address] [facility] Jairo Lyon MD, PA Follow-Up [id number] 06/30/19 16 06/30/[address] [facility] Jairo Lyon MD, PA Follow-Up [id number] 06/30/19 16 06/30/[address] [facility] Jairo Lyon MD, PA Follow-Up [id number] 06/30/19 16 06/30/[address] [facility] Jairo Lyon MD, PA Follow-Up [id number] 06/30/19 16 06/30/2015 Jairo Lyon MD, PA Jairo Lyon MD, PA Follow-Up [id number] 06/30/19 16 06/30/2015 [facility] Jairo Lyon MD, PA Follow-Up [id number] 06/30/19 16 06/30/2015 [facility] Jairo Lyon MD, PA Follow-Up [id number] 06/30/19 16 06/30/2015 Jairo Lyon MD, PA Jairo Lyon MD, PA Follow-Up [id number] 06/30/19 16 06/30/[address] [facility] Jairo Lyon MD, PA Follow-Up [id number] 06/30/19 16 06/30/[address] [facility] Jairo Lyon MD, PA Follow-Up [id number] 06/30/19 16 06/30/[address] [facility] Jairo Lyon MD, PA Follow-Up [id number] 06/30/19 16 06/30/[address] [facility] Jairo Lyon MD, PA Follow-Up [id number] 06/30/19 16 06/30/2015 Jairo Lyon MD, PA [facility] Patient here for a follow up [id number] 07/04/2015 07/04/2015 Jairo Lyon MD, PA [facility] Patient here for a follow up [id number] 07/04/2015 07/04/2015 [facility] Patient here for a follow up [id number] 07/04/2015 07/04/2015 [facility] Patient here for a follow up [id number] 07/04/2015 07/04/2015 [facility] Patient here for a follow up [id number] 07/04/2015 07/04/2015 [facility] Patient here for a follow up [id number] 07/04/2015 07/04/2015 Jairo Lyon MD, PA [facility] Patient here for a follow up [id number] 07/04/2015 07/04/2015 [facility] Patient here for a follow up [id number] 07/04/2015 07/04/2015 [facility] Patient here for a follow up [id number] 07/04/2015 07/04/2015 Jairo Lyon MD, PA [facility] Patient here for a follow up [id number] 07/04/2015 07/04/2015 [facility] Patient here for a follow up [id number] 07/04/2015 07/04/2015 [facility] Patient here for a follow up [id number] 07/04/2015 07/04/2015 [facility] Patient here for a follow up [id number] 07/04/2015 07/04/2015 [facility] Patient here for a follow up [id number] 07/04/2015 07/04/2015 [facility] Patient here for a follow up [id number] 07/04/2015 07/04/2015 Jairo Lyon MD, PA [facility] patient here for his annuuel physical and labs [id number] 07/18/2015 07/18/2015 Jairo Lyon MD, PA [facility] patient here for his annuuel physical and labs [id number] 07/18/2015 07/18/2015 [facility] patient here for his annuuel physical and labs [id number] 07/18/2015 07/18/2015 [facility] patient here for his annuuel physical and labs [id number] 07/18/2015 07/18/2015 [facility] patient here for his annuuel physical and labs [id number] 07/18/2015 07/18/2015 [facility] patient here for his annuuel physical and labs [id number] 07/18/2015 07/18/2015 Jairo Lyon MD, PA [facility] patient here for his annuuel physical and labs [id number] 07/18/2015 07/18/2015 [facility] patient here for his annuuel physical and labs [id number] 07/18/2015 07/18/2015 [facility] patient here for his annuuel physical and labs [id number] 07/18/2015 07/18/2015 [facility] patient here for his annuuel physical and labs [id number] 07/18/2015 07/18/2015 [facility] patient here for his annuuel physical and labs [id number] 07/18/2015 07/18/2015 [facility] patient here for his annuuel physical and labs [id number] 07/18/2015 07/18/2015 [facility] patient here for his annuuel physical and labs [id number] 07/18/2015 07/18/2015 Jairo Lyon MD, PA [facility] patient here for labs work [id number] 08/25/2015 08/25/2015 [facility] patient here for labs work [id number] 08/25/2015 08/25/2015 [facility] patient here for labs work [id number] 08/25/2015 08/25/2015 [facility] patient here for labs work [id number] 08/25/2015 08/25/2015 [facility] patient here for labs work [id number] 08/25/2015 08/25/2015 Jairo Lyon MD, PA [facility] patient here for labs work [id number] 08/25/2015 08/25/2015 [facility] patient here for labs work [id number] 08/25/2015 08/25/2015 [facility] patient here for labs work [id number] 08/25/2015 08/25/2015 [facility] patient here for labs work [id number] 08/25/2015 08/25/2015 [facility] patient here for labs work [id number] 08/25/2015 08/25/[address] [facility] patient here for labs work [id number] 08/25/2015 08/25/2015 Jairo Lyon MD, PA [facility] test strips called in [id number] 09/15/2015 09/15/2015 [facility] test strips called in [id number] 09/15/2015 09/15/2015 [facility] test strips called in [id number] 09/15/2015 09/15/2015 [facility] test strips called in [id number] 09/15/2015 09/15/2015 Jairo Lyon MD, PA [facility] test strips called in [id number] 09/15/2015 09/15/2015 [facility] test strips called in [id number] 09/15/2015 09/15/2015 [facility] test strips called in [id number] 09/15/2015 09/15/2015 [facility] test strips called in [id number] 09/15/2015 09/15/2015 [facility] test strips called in [id number] 09/15/2015 09/15/2015 [facility] test strips called in [id number] 09/15/2015 09/15/2015 Jairo Lyon MD, PA [facility] test strips called in [id number] 09/29/2015 09/29/2015 [facility] test strips called in [id number] 09/29/2015 09/29/2015 [facility] test strips called in [id number] 09/29/2015 09/29/2015 Jairo Lyon MD, PA [facility] test strips called in [id number] 09/29/2015 09/29/2015 [facility] test strips called in [id number] 09/29/2015 09/29/2015 [facility] test strips called in [id number] 09/29/2015 09/29/2015 [facility] test strips called in [id number] 09/29/2015 09/29/2015 [facility] test strips called in [id number] 09/29/2015 09/29/2015 [facility] test strips called in [id number] 09/29/2015 09/29/2015 Jairo Lyon MD, PA Jairo Lyon MD, PA Follow-Up [id number] 11/05/1911/05/2015 Jairo Lyon MD, PA Jairo Lyon MD, PA Follow-Up [id number] 11/05/19 16 11/05/[address] [facility] Jairo Lyon MD, [place] Follow-Up [id number] 11/05/19 16 11/05/[address] [facility] Jairo Lyon MD, PA Follow-Up [id number] 11/05/19 16 11/05/[address] [facility] Jairo Lyon MD, PA Follow-Up [id number] 11/05/19 16 11/05/[address] [facility] Jairo Lyon MD, PA Follow-Up [id number] 11/05/19 16 11/05/[address] [facility] Jairo Lyon MD, PA Follow-Up [id number] 11/05/19 16 11/05/2015 Jairo Lyon MD, PA [facility] Patient here for follow up on medication and diabetes [id number] 11/19/2015 11/19/2015 [facility] Patient here for follow up on medication and diabetes [id number] 11/19/2015 11/19/2015 Jairo Lyon MD, PA [facility] Patient here for follow up on medication and diabetes [id number] 11/19/2015 11/19/2015 [facility] Patient here for follow up on medication and diabetes [id number] 11/19/2015 11/19/2015 [facility] Patient here for follow up on medication and diabetes [id number] 11/19/2015 11/19/2015 [facility] Patient here for follow up on medication and diabetes [id number] 11/19/2015 11/19/2015 [facility] Patient here for follow up on medication and diabetes [id number] 11/19/2015 11/19/2015 [facility] Patient here for follow up on medication and diabetes [id number] 11/19/2015 11/19/2015 Jairo Lyon MD, PA [facility] patient here to follow up with diabetes [id number] 02/11/2016 02/11/2016 [facility] patient here to follow up with diabetes [id number] 02/11/2016 02/11/2016 [facility] patient here to follow up with diabetes [id number] 02/11/2016 02/11/2016 [facility] patient here to follow up with diabetes [id number] 02/11/2016 02/11/2016 [facility] patient here to follow up with diabetes [id number] 02/11/2016 02/11/2016 [facility] patient here to follow up with diabetes [id number] 02/11/2016 02/11/2016 Jairo Lyon MD, PA [facility] flu shot [id number] 02/13/20 16 02/13/2016 [facility] flu shot [id number] 02/13/20 16 02/13/2016 [facility] flu shot [id number] 02/13/20 16 02/13/2016 [facility] flu shot [id number] 02/13/20 16 02/13/2016 [facility] flu shot [id number] 02/13/20 16 02/13/2016 Jairo Lyon MD, PA [facility] [place] patient here to follow up on diabetes [id number] 04/29/2016 04/29/2016 [facility] patient here to follow up on diabetes [id number] 04/29/2016 04/29/2016 [facility] patient here to follow up on diabetes [id number] 04/29/2016 04/29/2016 [facility] patient here to follow up on diabetes [id number] 04/29/2016 04/29/2016 Jairo Lyon MD, PA Jairo Lyon MD, PA Follow-Up [id number] 05/06/20 16 05/06/2016 Jairo Lyon MD, PA [facility] Patient here for annyal physical and labs [id number] 06/02/2016 06/02/2016 [facility] Patient here for annyal physical and labs [id number] 06/02/2016 06/02/2016 [facility] Patient here for annyal physical and labs [id number] 06/02/2016 06/02/2016 Jairo Lyon MD, PA [facility] Outpatient [id number] Annelise Canseco 06/04/2016 06/05/2016 [facility] Patient here to over bone density scan [id number] 06/17/2016 06/17/2016 [facility] Patient here to over bone density scan [id number] 06/17/2016 06/17/2016 Jairo Lyon MD, PA Procedures Procedure Code Date Perfomer Comments Source Cataract extraction, insertion of intrao cular lens and trabeculectomy [id number] [facility] Colonoscopy [id number] [facility] Foot repair [id number] [facility] Assessment and Plan No Data Provided [...] . Status: No Jun 17, 2016 06/17/[address] [facility] Social History ElementQualifiersDate Rep orted Tobacco [...] No; Reg Smoking Cessation Counseling No 06/16/2015 [facility] Family History Value Date S ource QualifierDescriptionCommentDate [...] Comment not available Jun 02, 2016 06/03/2016 [facility] Primary Advance Directives No Data Provided for This Section Functional Status No Data Provided for This Section
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
== END 2020-03-24 11:55 | disposition home or self-care (01) ==
LOC: ER 11:55
DX: E11.649 Type 2 diabetes mellitus with hypoglycemia without coma (principal); Z96.41 Presence of insulin pump (external) (internal); V47.5XXA Car driver injured in collision with fixed or stationary object in traffic accident, initial encounter; Y92.488 Other paved roadways as the place of occurrence of the external cause; I10 Essential (primary) hypertension; E78.5 Hyperlipidemia, unspecified
CPT/HCPCS: 99283